=== PATIENT | female | born 1950 | race Caucasian/White ===

== ENCOUNTER 2020-01-07 10:11 | Outpatient (REF) | payer OTHER, SELFPAY ==
[2020-01-07 10:33] LABS: COVID-19 Test Negative (Negative)
== END 2020-01-07 10:12 | disposition home or self-care (01) ==
LOC: HO.LAB 10:11
PROVIDERS: PCP Physician Assistant; Visit Provider Internal Medicine
DX: Z20.828 Contact with and (suspected) exposure to other viral communicable diseases (principal)
CPT/HCPCS: 87635; C9803

== ENCOUNTER 2020-01-08 08:22 | Outpatient (REF) | payer OTHER, SELFPAY ==
[2020-01-08 11:40] LABS: Free T4 (Free Thyroxine) 1.37 ng/dL (0.71-1.85); Thyroid Stimulating Hormone 0.38 mIU/mL (0.32-4.0)
== END 2020-01-08 08:23 | disposition home or self-care (01) ==
LOC: HO.LAB 08:22
PROVIDERS: PCP Physician Assistant; Visit Provider Internal Medicine Endocrinology, Diabetes & Metabolism
DX: E03.9 Hypothyroidism, unspecified (principal)
CPT/HCPCS: 84439; 84443

== ENCOUNTER 2020-02-11 14:32 | Outpatient (REF) | payer OTHER, SELFPAY ==
--- NOTE | 2020-02-11 | MM_ITS ---
EXAMINATION: BONE DENSITOMETRY CLINICAL INDICATION: Asymptomatic menopausal state. COMPARISON: Baseline BD dated 05/17/2017. TECHNIQUE: Using a [employer] DXA System (software version: 13.1) manufactured by [employer], dual-energy x-ray absorptiometry was performed of the lumbar spine and left hip. The images are of good technical quality. Summary results are attached. FINDINGS: AP SPINE L1-L4: Current: BMD 0.840 g/cm2, Z-score -1.0, T-score -2.8, osteoporosis, 5.7% decrease from baseline (<5% change is not significant). Baseline: BMD 0.891 g/cm2. LEFT FEMUR, NECK: Current: BMD 0.800 g/cm2, Z-score 0.2, T-score -1.7, osteopenia. Baseline: BMD 0.821 g/cm2. LEFT FEMUR, TOTAL: Current: BMD 0.850 g/cm2, Z-score 0.4, T-score -1.3, osteopenia, 1.7% decrease from baseline (<5% change is not significant). Baseline: BMD 0.865 g/cm2. IDENTIFIED RISK FACTORS: Menopause, history of fracture (adult). HISTORY OF FRACTURE: Other. MEDICATIONS: None listed. MM/XR DEXA axial skeleton IMPRESSION: 1. DIAGNOSIS: Osteoporosis based on the lowest T-score value of -2.8 in the lumbar spine applying World Health Organization criteria. 2. 10-YEAR FRACTURE RISK PREDICTION, FRAX: Major osteoporotic fracture (clinical spine, forearm, hip or shoulder) 10.9%. Hip fracture 2.0%. 3. Treatment Recommendations: NOF guidelines recommend consideration for treatment in postmenopausal women and men age 50 and older presenting with the following: -A hip or vertebral (clinical or morphometric) fracture. -T-score less than or equal to -2.5 at the femoral neck or spine after appropriate evaluation to exclude secondary causes. -Low bone mass at the hip or spine and a 10-year fracture probability by FRAX of greater than or equal to 3% for hip fracture or greater than or equal to 20% for major osteoporotic fracture based on the [place] adapted WHO algorithm. 4. Other Recommendations: All treatment decisions require clinical judgment and consideration of individual patient factors, including patient preferences, comorbidities, previous drug use, risk factors not captured in the FRAX model (e.g. frailty, falls, vitamin D deficiency, increased bone turnover, interval significant decline in bone density) and possible under or overestimation of fracture risk by FRAX. Additional medical evaluation for secondary cause of low bone mineral density may be appropriate. FUTURE SCAN RECOMMENDATION: People with diagnosed cases of osteoporosis or at high risk for fracture should have regular bone mineral density tests. For patients eligible for Medicare, routine testing is allowed once every 2 years. The testing frequency can be increased to one year for patients who have rapidly progressing disease, those who are receiving or discontinuing medical therapy to restore bone mass, or have additional risk factors.
== END 2020-02-11 14:33 | disposition home or self-care (01) ==
LOC: HO.MAMMO 14:32
PROVIDERS: PCP Physician Assistant; Visit Provider Physician Assistant
DX: Z78.0 Asymptomatic menopausal state (principal)
CPT/HCPCS: 77080

== ENCOUNTER 2020-03-08 08:20 | Outpatient (REF) | payer OTHER, SELFPAY ==
[2020-03-08 09:56] LABS: Anion Gap 14 (12-20); Blood Urea Nitrogen 22 mg/dL (9-16); Carbon Dioxide 26 mmol/L (22-29); Chloride 106 mmol/L (96-108); Cholesterol 190 mg/dL; Estimated Glomerular Filt Rate 55; Glucose Random 92 mg/dL (60-115); HDL Cholesterol 80 mg/dL; LDL Cholesterol Calculated 94 mg/dl; Potassium 4.7 mmol/l (3.3-5.1); Sodium 141 mmol/L (135-145); Triglycerides 83 mg/dL
== END 2020-03-08 08:21 | disposition home or self-care (01) ==
LOC: HO.LAB 08:20
PROVIDERS: Visit Provider Family Medicine
DX: I10 Essential (primary) hypertension (principal)
CPT/HCPCS: 36415; 80048; 80061

== ENCOUNTER → 2020-06-01 14:20 | Outpatient (BNVA) | payer OTHER, SELFPAY | PROVIDERS: PCP Family Medicine; Visit Provider Internal Medicine Endocrinology, Diabetes & Metabolism ==

== ENCOUNTER 2020-06-03 08:35 | Outpatient (REF) | payer OTHER, SELFPAY ==
[2020-06-03 10:07] LABS: Free T4 (Free Thyroxine) 1.34 ng/dL (0.71-1.85); Thyroid Stimulating Hormone 0.97 uIU/mL (0.32-4.0); Vitamin D 25-OH Total 18.8 ng/mL (>30)
== END 2020-06-03 08:36 | disposition home or self-care (01) ==
LOC: HO.LAB 08:35
PROVIDERS: PCP Family Medicine; Visit Provider Internal Medicine Endocrinology, Diabetes & Metabolism
DX: E03.9 Hypothyroidism, unspecified (principal); E55.9 Vitamin D deficiency, unspecified
CPT/HCPCS: 36415; 82306; 84439; 84443

== ENCOUNTER 2020-08-27 07:12 | Outpatient (REF) | payer OTHER, SELFPAY ==
--- NOTE | ~2020-08-27 | MM_ITS ---
EXAMINATION: MM SCREENING DIGITAL BREAST TOMOSYNTHESIS, BILATERAL CLINICAL INFORMATION: Screening. Asymptomatic. The lifetime risk of breast cancer based on the Tyrer-Cuzick Model is 4.8%. COMPARISON: Mammography: June 07, 2018 and studies dating back to July 04, 2011 TECHNIQUE: Digital breast tomosynthesis is performed in both the craniocaudal and mediolateral oblique views along with computer-aided detection (CAD). Synthesized 2D images are generated from the tomosynthesis. FINDINGS: There are scattered areas of fibroglandular density (ACR BI-RADS breast composition Category b). There are no significant masses, abnormal calcifications, or other abnormalities. MM/MM tomosynthesis screening BI IMPRESSION: There are no significant changes from prior study. ASSESSMENT: BI-RADS 1: Negative RECOMMENDATION: Routine annual mammography screening. This patient's information was entered into a reminder system with a target due date for their next mammogram.
== END 2020-08-27 07:13 | disposition home or self-care (01) ==
LOC: HO.MAMMO 07:12
PROVIDERS: PCP Family Medicine; Visit Provider Family Medicine
DX: Z12.31 Encounter for screening mammogram for malignant neoplasm of breast (principal)
CPT/HCPCS: 77063; 77067

== ENCOUNTER 2020-08-30 06:13 | Outpatient (REF) | payer OTHER, SELFPAY ==
--- NOTE | ~2020-08-30 | XR_ITS ---
EXAMINATION: XR BILATERAL HIPS WITH AP PELVIS CLINICAL INFORMATION: Bilateral hip pain. COMPARISON: None. TECHNIQUE: AP view of the pelvis and single views of each hip were obtained. FINDINGS: AP pelvis: There is normal symmetry of SI joints and hip joints with no bony erosive changes, fracture or dislocation. There are symmetrical pelvic bones. There is incidental mild constipation. Bilateral hips: There is normal symmetry of both hip joints with maintained hip joint space. No bony erosive changes seen. No loose bodies. No acute fracture or dislocation. The soft tissues are normal. XR/XR hips CLIVE min 3V IMPRESSION: Unremarkable AP pelvis and bilateral hip exam.
== END 2020-08-30 06:14 | disposition home or self-care (01) ==
LOC: HO.XRAY 06:13
PROVIDERS: PCP Family Medicine; Visit Provider Family Medicine
DX: M25.551 Pain in right hip (principal); M25.552 Pain in left hip
CPT/HCPCS: 73522

== ENCOUNTER 2021-03-14 06:02 | Outpatient (REF) | payer OTHER, SELFPAY ==
[2021-03-14 07:32] LABS: Anion Gap 11 (12-20); Blood Urea Nitrogen 15 mg/dL (9-16); Calcium 9.7 mg/dL (8.4-10.2); Carbon Dioxide 28 mmol/L (22-29); Chloride 105 mmol/L (96-108); Cholesterol 206 mg/dL; Estimated Glomerular Filt Rate 46; Glucose Random 104 mg/dL (60-115); HDL Cholesterol 86 mg/dL; LDL Cholesterol Calculated 104 mg/dl; Potassium 4.3 mmol/L (3.3-5.1); Sodium 140 mmol/L (135-145); Triglycerides 84 mg/dL
== END 2021-03-14 06:03 | disposition home or self-care (01) ==
LOC: HO.LAB 06:02
PROVIDERS: Visit Provider Family Medicine
DX: E78.2 Mixed hyperlipidemia (principal); I10 Essential (primary) hypertension; E03.9 Hypothyroidism, unspecified
CPT/HCPCS: 36415; 80048; 80061; 84443

== ENCOUNTER 2021-04-20 17:17 | Emergency (ER) | payer OTHER, SELFPAY ==
--- NOTE | ~2021-04-20 | CT_ITS ---
EXAMINATION: CT ANGIOGRAM ABDOMEN AND PELVIS CLINICAL INFORMATION: Abdominal pain COMPARISON: None TECHNIQUE: Multiple axial images were obtained through the abdomen and pelvis following the administration of 80 mL of Omnipaque 350 intravenous contrast. Images were non-reviewed on a dedicated 3-D workstation. Additional 2-D coronal and sagittal reformatted images and axial 3-D maximum intensity projection MIP images are generated on the CT workstation. This CT examination was performed using dose optimization techniques as appropriate, variously including the following: *Automated exposure control *Adjustment of mA and/or kV according to patient size (this includes techniques or standardized protocols for targeted exams where dose is matched to indication/reason for exam; i.e. extremities or head) *Use of iterative reconstruction technique DLP: 379 mGy-cm VASCULAR FINDINGS: The distal descending thoracic aorta appears unremarkable. No pulmonary emboli are seen at the lung bases. The abdominal aorta shows minimal atherosclerotic plaque with no aneurysm dissection or stenosis. The aortic bifurcation is patent. Mild calcific plaque present in the proximal common iliac arteries with no stenosis. Both iliac bifurcations are patent. The internal iliac arteries and external iliac arteries are widely patent. Both common femoral arteries appear normal with normal bifurcations and normal-appearing proximal profunda femoris and superficial femoral arteries. The celiac SMA and LORRI are all widely patent. There are single renal arteries present bilaterally that demonstrate mild ostial disease, left greater than right. NONVASCULAR FINDINGS: LUNG BASES: The visualized lung bases are unremarkable. LIVER, GALLBLADDER, AND BILIARY TREE: The liver is normal in size, shape, and attenuation. No focal hepatic lesion or biliary ductal dilatation is present. The gallbladder is unremarkable with no evidence of radiopaque gallstones, gallbladder wall thickening, or obvious pericholecystic inflammatory changes. PANCREAS: Unremarkable. SPLEEN: Unremarkable. ADRENAL GLANDS: Unremarkable. KIDNEYS AND URETERS: The kidneys are normal in size, shape, and attenuation but demonstrates some mild cortical thinning. No hydronephrosis, hydroureter, or calculi seen. No perinephric stranding. BLADDER: Unremarkable. GASTROINTESTINAL TRACT: The small and large bowel are unremarkable. The appendix isn't seen but there is no evidence of appendicitis.. ABDOMINAL WALL: No significant hernia is appreciated. LYMPH NODES: No retroperitoneal lymphadenopathy. PELVIC VISCERA: Unremarkable. OSSEOUS STRUCTURES: Unremarkable. Minimal grade 1 anterolisthesis of L5 upon S1. CT/CT angio abdomen pelvis IMPRESSION: 1. No vascular abnormality is seen. 2. Mild renal cortical thinning. 3. No significant abnormality seen to account for the patient's abdominal pain Fleischner guidelines were followed.
[2021-04-20 17:37] VITALS: BP 173/59; PULSE 66; RESP 18; TEMP 36.5; O2SAT 97; BMI 23.6
[2021-04-20 17:51] LABS: MANUAL DIFF FLAG NO
[2021-04-20 18:06] LABS: Alanine Aminotransferase 12 U/L (0-31); Albumin Level 4.2 g/dL (3.5-5.0); Alkaline Phosphatase 57 U/L (39-117); Anion Gap 15 (12-20); Aspartate Amino Transferase 20 U/L (5-31); Bilirubin Total 0.5 mg/dL (0.0-1.0); Blood Urea Nitrogen 14 mg/dL (9-16); Calcium 9.8 mg/dL (8.4-10.2); Carbon Dioxide 25 mmol/L (22-29); Chloride 104 mmol/L (96-108); Estimated Glomerular Filt Rate 44; Glucose Random 109 mg/dL (60-115); Potassium 4.2 mmol/L (3.3-5.1); Sodium 140 mmol/L (135-145); Total Protein 6.7 g/dL (6.5-8.0)
[2021-04-20 18:07] LABS: Basophils Absolute Auto 0.1 X10*3/uL (0.0-0.2); Eosinophils Percent Auto 0.4 % (0-4); Hematocrit 38.4 % (37.0-47.0); Hemoglobin 12.7 g/dl (12.0-16.0); Imm Gran Abs Auto 0.01 X10*3/uL (0.00-0.03); Imm Gran Pct Auto 0.2 % (0.0-0.4); Lymphocytes Absolute Auto 1.5 X10*3/uL (1.2-4.9); Lymphocytes Percent Auto 30.4 % (20-40); Mean Corpuscular HGB Conc 33.1 g/dl (31.0-35.0); Mean Corpuscular Hemoglobin 31.1 pg (27.0-33.0); Mean Corpuscular Volume 93.9 fL (80.0-98.0); Mean Platelet Volume 9.8 fL (9.4-12.3); Monocytes Absolute Auto 0.5 X10*3/uL (0.1-1.2); Monocytes Percent Auto 10.4 % (2-11); Neutrophils Absolute Auto 2.8 x10*3/uL (2.0-8.3); Neutrophils Percent Auto 57.6 % (45-73); Platelet Count 215 X10*3/uL (160-400); Red Blood Count 4.09 X10*6/uL (4.20-5.50); Red Cell Distribution Width 13.8 % (11.0-16.0); White Blood Count 4.9 X10*3/uL (4.8-10.8)
--- NOTE | 2021-04-20 19:44 | ED.ABDPAIN ---
HPI - Abdominal Pain General Chief Complaint: Abdominal Pain Stated Complaint: abd pain Time Seen by Provider: 04/20/21 19:43 Source: patient Mode of arrival: ambulatory Limitations: no limitations History of Present Illness MD elicited complaint: abdominal pain Pertinent past history: none Onset (ago): day(s) (1) Pain Consistency: constant Location: periumbilical Severity: moderate Quality: cramping Radiation: back Migration to: no migration Exacerbating factors: nothing Relieving factors: nothing Associated symptoms: other (multiple bowel movements, urinary frequency) Related Data Home Medications Medication Instructions Recorded Confirmed lisinopril 10 mg tablet 10 mg PO DAILY 06/01/20 06/01/20 simvastatin 20 mg tablet 20 mg PO BEDTIME 06/01/20 06/01/20 Previous Rx's Medication Instructions Recorded Levoxyl 75 mcg tablet 75 mcg PO DAILY 90 Days #80 tab NS 06/01/20 (levothyroxine) calcium carbonate 600 mg calcium 600 mg PO BID 90 Days #180 tab 06/01/20 (1,500 mg) tablet (Calcium) cefuroxime axetil 500 mg tablet 500 mg PO BID 7 Days #14 tab 04/20/21 Allergies Allergy/AdvReac Type Severity Reaction Status Date / Time No Known Allergies Allergy Verified 04/20/21 17:37 [No Known Allergies*] Review of Systems Review of Systems Constitutional : No Weight loss, No Fever, No Chills ENT/Mouth : No sore throat, No Rhinorrhea Eyes: No Swelling, No Redness Cardiovascular : No Chest Pain, No SOB, NoEdema Respiratory : No Cough, No Sputum, No Wheezing Gastrointestinal : no Nausea, no Vomiting, no Diarrhea, positive abdominal Pain, No Hematochezia, No Melena Genitourinary : No Dysuria, pos Urinary Frequency, No Hematuria, No Urgency Musculoskeletal : No joint pain, No Myalgias, No Joint Swelling Skin : No Skin Lesions, No rash Neuro : No Weakness, No Numbness, No Dizziness, No Headache Psych : No Anxiety/Panic, No Depression Heme/Lymph: No Bruising, No Lymphadenopathy Endocrine : No Polyuria, No Polydipsia All other systems reviewed and are negative. [facility] Past Medical History Medical History Hypothyroidism Vitamin D deficiency Surgical History Hx of tonsillectomy Family History Family History (Updated 01/07/20 @ 16:26 by IQRA Blackwood) Father Lung cancer Mother Cancer Social History Social History (Updated 04/20/21 @ 20:08 by Digna Harrell DO) Alcohol intake: never Patient Tobacco Use Status: Never used Tobacco Advance Directives: No Advance Directives Information Provided: Yes Physical Exam ED Vital Signs: Vital Signs - 24 hr 04/20/21 17:37 Temperature 97.7 F Pulse Rate 66 Respiratory Rate 18 Blood Pressure 173/59 H Pulse Oximetry 97 BMI result Body Mass Index 23.6 Appearance: Alert. Oriented X3. No acute distress. On arrival bending forward to remove her shoes Eyes: Pupils equal, round and reactive to light. ENT: Pharynx normal. Neck: Normal inspection. Neck supple. CVS: Normal heart rate and rhythm. Pulses normal. Respiratory: No respiratory distress. Breath sounds normal. Abdomen: Soft and non-tender. No mass felt, no peritoneal signs Skin: Skin warm and dry. Normal skin color. Normal skin turgor. Extremities: No lower extremity edema. No calf ttp Neuro: Oriented X 3. No motor deficit. No sensory deficit. Course Course Course Narrative: negative workup stable for DC low abdominal pain no cp/sob not consistent with ACS doubt ischemia MDM - Abdominal Pain MDM Narrative Medical decision making narrative: 70 yo female hx of HTN here with one day of lower abdominal pain that radiates to the back no known prior aortic aneurysm at this time she has no peritoneal signs she is not on blood thinners she does note increased in stool frequency and urinary frequency will obtain basic labs, CT scan of abdomen given lack of peritoneal findings and the fact that she is bending forward seems unlikely to be ruptured althoug could be retroperitoneal, UA ordered for UTI. Could be UTI / renal colic/diverticulitis as well. Dispo per results and findings. On arrival to my exam requested she be brought to CT scanner immediately. Lab Data Result diagrams: 04/20/21 17:47 04/20/21 17:47 Labs: Lab Results 04/20/21 04/20/21 04/20/21 Range/Units 17:47 17:47 20:58 WBC 4.9 (4.8-10.8) X10*3/uL RBC 4.09 L (4.20-5.50) X10*6/uL Hgb 12.7 (12.0-16.0) g/dl Hct 38.4 (37.0-47.0) % MCV 93.9 (80.0-98.0) fL MCH 31.1 (27.0-33.0) pg MCHC 33.1 (31.0-35.0) g/dl RDW 13.8 (11.0-16.0) % Plt Count 215 (160-400) X10*3/uL MPV 9.8 (9.4-12.3) fL Immature Gran % (Auto) 0.2 (0.0-0.4) % Neut % (Auto) 57.6 (45-73) % Lymph % (Auto) 30.4 (20-40) % [place] % (Auto) 10.4 (2-11) % Eos % (Auto) 0.4 (0-4) % Baso % (Auto) 1.0 (0-2) % Lymph # (Auto) 1.5 (1.2-4.9) X10*3/uL [place] # (Auto) 0.5 (0.1-1.2) X10*3/uL Eos # (Auto) 0.0 (0.0-0.4) X10*3/uL Baso # (Auto) 0.1 (0.0-0.2) X10*3/uL Abs Immat Gran (auto) 0.01 (0.00-0.03) X10*3/uL Absolute Neuts (auto) 2.8 (2.0-8.3) x10*3/uL Absolute Nucleated RBC 0.000 (0.0-0.012) X10*3/uL Nucleated RBC % (auto) 0.0 (0.0-0.2) /100WBC Sodium 140 (135-145) mmol/L Potassium 4.2 (3.3-5.1) mmol/L Chloride 104 (96-108) mmol/L Carbon Dioxide 25 (22-29) mmol/L Anion Gap 15 (12-20) BUN 14 (9-16) mg/dL Creatinine 1.20 (0.5-1.4) mg/dL Estim Creat Clear Calc 35.0 Estimated GFR 44 Random Glucose 109 (60-115) mg/dL Calcium 9.8 (8.4-10.2) mg/dL Total Bilirubin 0.5 (0.0-1.0) mg/dL AST 20 (5-31) U/L ALT 12 (0-31) U/L Alkaline Phosphatase 57 (39-117) U/L Total Protein 6.7 (6.5-8.0) g/dL Albumin 4.2 (3.5-5.0) g/dL Urine Color YELLOW Urine Appearance CLEAR Urine pH 5.5 (5.0-8.0) Ur Specific [place] <= 1.005 (1.005-1.025) Urine Protein NEG (NEG-TRACE) MG/DL Urine Glucose (UA) NEG (NEG) MG/DL Urine Ketones 5 (NEG) MG/DL Urine Blood NEG (NEG) Urine Nitrite NEG (NEG) Ur Leukocyte Esterase 1+ H (NEG) Urine RBC 0 (0) /HPF Urine WBC 10-14 H (0-4) /HPF Ur Squamous Epith Cells 1+ /LPF Urine Bacteria TRACE /LPF ECG Data Attestation: I personally reviewed and interpreted this ECG as follows: ECG interpretation date: 04/20/21 ECG interpretation time: 21:46 Interpretation: Rate: 62 Rhythm: NSR with PACs [place]: noemL Normal P waves. Normal ARTIS. Normal QRS complex. ST T wave : normal no ARNULFO qTC: normal prior studies: no acute ischemia The study has been interpreted contemporaneously by me. . Discharge Plan Discharge Clinical Impression: Abdominal pain, Acute UTI Patient Disposition: Home, Self-Care Instructions: Urinary Tract Infection in Women (ED), Abdominal Pain (ED) Additional Instructions: return to ED for any worsening symptoms or concerns PLEASE TAKE A PROBIOTIC WHILE ON ANTIBIOTIC VASCULAR FINDINGS: The distal descending thoracic aorta appears unremarkable. No pulmonary emboli are seen at the lung bases. The abdominal aorta shows minimal atherosclerotic plaque with no aneurysm dissection or stenosis. The aortic bifurcation is patent. Mild calcific plaque present in the proximal common iliac arteries with no stenosis. Both iliac bifurcations are patent. The internal iliac arteries and external iliac arteries are widely patent. Both common femoral arteries appear normal with normal bifurcations and normal-appearing proximal profunda femoris and superficial femoral arteries. The celiac SMA and LORRI are all widely patent. There are single renal arteries present bilaterally that demonstrate mild ostial disease, left greater than right. NONVASCULAR FINDINGS: LUNG BASES: The visualized lung bases are unremarkable.? LIVER, GALLBLADDER, AND BILIARY TREE: The liver is normal in size, shape, and attenuation. No focal hepatic lesion or biliary ductal dilatation is present. The gallbladder is unremarkable with no evidence of radiopaque gallstones, gallbladder wall thickening, or obvious pericholecystic inflammatory changes.? PANCREAS: Unremarkable.? SPLEEN: Unremarkable.? ADRENAL GLANDS: Unremarkable.? KIDNEYS AND URETERS: The kidneys are normal in size, shape, and attenuation but demonstrates some mild cortical thinning. No hydronephrosis, hydroureter, or calculi seen. No perinephric stranding. ? BLADDER: Unremarkable.? GASTROINTESTINAL TRACT: The small and large bowel are unremarkable. The appendix isn't seen but there is no evidence of appendicitis..? ABDOMINAL WALL: No significant hernia is appreciated.? LYMPH NODES: No retroperitoneal lymphadenopathy. PELVIC VISCERA: Unremarkable.? OSSEOUS STRUCTURES: Unremarkable. Minimal grade 1 anterolisthesis of L5 upon S1. CT/CT angio abdomen pelvis IMPRESSION: 1.? No vascular abnormality is seen. 2.? Mild renal cortical thinning. 3.? No significant abnormality seen to account for the patient's abdominal pain Prescriptions: New cefuroxime axetil 500 mg tablet 500 mg PO BID 7 Days Qty: 14 0RF No Action simvastatin 20 mg tablet 20 mg PO BEDTIME 0RF lisinopril 10 mg tablet 10 mg PO DAILY 0RF levothyroxine [Levoxyl] 75 mcg tablet 75 mcg PO DAILY 90 Days Qty: 80 4RF Rx Instructions: Dispense as written, brand medically necessary. One tablet Saturday through Saturday calcium carbonate [Calcium 600] 600 mg calcium (1,500 mg) tablet 600 mg PO BID 90 Days Qty: 180 5RF Referrals: Ioana Fischer MD [Primary Care Provider] - 2 days (if not better) Stand Alone Forms: Work/School Release
[2021-04-20] MEDS: iohexoL 350 MG/ML 100 ML INFUS..BTL IV (20:12)
--- NOTE | 2021-04-20 21:03 | PC.NURSE ---
pt up with steady even gait to restroom for urine sample. pt denies any complaints at this time and awaiting for CT report.
[2021-04-20 21:18] LABS: Appearance Urine CLEAR; Color Urine YELLOW; Glucose Urine UA NEG (NEG); Leukocyte Esterase Urine 1+ (NEG); Nitrite Urine NEG (NEG); PH 5.5 (5.0-8.0); Specific Gravity - Urine <= 1.005 (1.005-1.025); UACC Culture Trigger YES; Urine Blood NEG (NEG); Urine Ketones 5 MG/DL (NEG); Urine Protein NEG (NEG-TRACE)
[2021-04-20 21:28] LABS: Bacteria Urine TRACE /LPF; RBC Urine 0 /HPF (0); Squamous Epithelial Cell Urine 1+ /LPF
--- NOTE | 2021-04-20 21:41 | ECG_ITS ---
Test Reason : ABD PAIN Blood Pressure : / mmHG Vent. Rate : 062 BPM Atrial Rate : 062 BPM P-R Int : 164 ms QRS Dur : 080 ms QT Int : 412 ms P-R-T Axes : 020 050 067 degrees QTc Int : 418 ms Sinus rhythm with Premature supraventricular complexes Otherwise normal ECG When compared with ECG of 27-JUL-2016 09:58, Premature supraventricular complexes are now Present Referred By: Digna Harrell Electronically Signed By:VINAY BELLAMY MD
== END 2021-04-20 22:07 | disposition home or self-care (01) ==
PROVIDERS: Emergency Provider Emergency Medicine; PCP Family Medicine
DX: N39.0 Urinary tract infection, site not specified (principal); R35.0 Frequency of micturition; R10.33 Periumbilical pain; R07.89 Other chest pain; Z79.899 Other long term (current) drug therapy
CPT/HCPCS: 36415; 74174; 80053; 81001; 85025; 87086; 93005; 99283; 99284; Q9967

== ENCOUNTER → 2021-06-13 10:57 | Outpatient (BNVA) | payer OTHER, SELFPAY | PROVIDERS: PCP Family Medicine; Visit Provider Internal Medicine Endocrinology, Diabetes & Metabolism | DX: Z13.89 Encounter for screening for other disorder (principal) ==

== ENCOUNTER 2021-06-20 13:56 | Outpatient (REF) | payer OTHER, SELFPAY ==
--- NOTE | ~2021-06-20 | MR_ITS ---
EXAMINATION: MR CERVICAL SPINE WITHOUT CONTRAST CLINICAL INFORMATION: Neck pain. COMPARISON: None available. TECHNIQUE: MRI of the cervical spine was performed using routine sequences without contrast. FINDINGS: The cervical vertebral bodies maintain normal heights. There is mild retrolisthesis of C5 on C6. There is severe disc height loss at C4-C5 and C5-C6. Endplate edema is seen at C4-C5. The cervical cord signal appears normal. The imaged portions of the intracranial contents appear normal. The extraspinal soft tissues appear normal. SPINAL LEVELS: C2-C3: No posterior disc abnormality. No spinal canal or neural foraminal stenosis. C3-C4: Mild disc osteophyte complex. Severe left facet arthropathy. No spinal canal or neural foraminal stenosis. C4-C5: Disc osteophyte complex with uncovertebral hypertrophy and severe left and moderate right facet arthropathy. Mild bilateral neural foraminal stenosis. No spinal canal stenosis. C5-C6: Disc osteophyte complex with left more than right uncovertebral hypertrophy and severe left and moderate right facet arthropathy. No spinal canal stenosis. Mild bilateral neural foraminal stenosis. C6-C7: Disc bulging with severe left and mild to moderate right facet arthropathy. Mild left neural foraminal stenosis. No spinal canal stenosis. C7-T1: No posterior disc abnormality. No spinal canal or neural foraminal stenosis. MR/MR cervical spine wo con IMPRESSION: Multilevel degenerative spondylosis without significant narrowing of the spinal canal. No high-grade neural foraminal stenosis is seen. Multilevel facet arthropathy is present, asymmetrically worse on the left.
== END 2021-06-20 13:57 | disposition home or self-care (01) ==
LOC: HO.MRI 13:56
PROVIDERS: Visit Provider Family Medicine
DX: M54.2 Cervicalgia (principal)
CPT/HCPCS: 72141

== ENCOUNTER 2021-07-11 06:09 | Outpatient (REF) | payer OTHER, SELFPAY ==
[2021-07-11 11:23] LABS: Vitamin D 25-OH Total 29.4 ng/mL (>30)
[2021-07-11 11:24] LABS: Free T4 (Free Thyroxine) 0.87 ng/dL (0.71-1.85); Thyroid Stimulating Hormone 12.08 uIU/mL (0.32-4.0)
== END 2021-07-11 06:10 | disposition home or self-care (01) ==
LOC: HO.LAB 06:09
PROVIDERS: Internal Medicine Endocrinology, Diabetes & Metabolism; PCP Family Medicine; Visit Provider Internal Medicine Endocrinology, Diabetes & Metabolism
DX: E03.9 Hypothyroidism, unspecified (principal); E55.9 Vitamin D deficiency, unspecified
CPT/HCPCS: 36415; 82306; 84439; 84443

== ENCOUNTER → 2021-07-19 08:32 | Outpatient (BNVA) | payer OTHER, SELFPAY | PROVIDERS: PCP Family Medicine; Visit Provider Nurse Practitioner Family | DX: Z13.89 Encounter for screening for other disorder (principal) ==

== ENCOUNTER 2021-08-10 13:57 | Outpatient (REF) | payer OTHER, SELFPAY ==
[2021-08-10 15:01] LABS: Free T4 (Free Thyroxine) 1.23 ng/dL (0.71-1.85); Thyroid Stimulating Hormone 1.55 uIU/mL (0.32-4.0)
== END 2021-08-10 13:58 | disposition home or self-care (01) ==
LOC: HO.LAB 13:57
PROVIDERS: PCP Family Medicine; Visit Provider Internal Medicine Endocrinology, Diabetes & Metabolism
DX: E03.9 Hypothyroidism, unspecified (principal)
CPT/HCPCS: 36415; 84439; 84443

== ENCOUNTER 2021-11-01 05:57 | Outpatient (REF) | payer OTHER, SELFPAY ==
--- NOTE | ~2021-11-01 | FL_ITS ---
EXAMINATION: XR FLUOROSCOPY WITH IMAGES CLINICAL INFORMATION: Left cervical spine injection. COMPARISON: None. TECHNIQUE: Fluoroscopy performed by Dr. Jarocho Gonzales. Fluoroscopy time: 0.3 minutes. Cumulative Dose: 0.781 mGy. DAP: 0.0656 Gy-cm2. Images: 5. FINDINGS: Multiple radiopaque needles project over the cervical spine. Contrast is injected and spreads along the nerve roots. FL/FL guidance in treatment room IMPRESSION: Fluoroscopic guidance for cervical injection. Please refer to procedural report for further information.
== END 2021-11-01 05:58 | disposition home or self-care (01) ==
LOC: HO.RADIR 05:57
PROVIDERS: Visit Provider Internal Medicine
DX: M47.812 Spondylosis without myelopathy or radiculopathy, cervical region (principal)
CPT/HCPCS: 64490; 64491; J2795; Q9965

== ENCOUNTER 2021-11-29 06:07 | Outpatient (REF) | payer OTHER, SELFPAY ==
--- NOTE | ~2021-11-29 | FL_ITS ---
EXAMINATION: XR FLUOROSCOPY WITH IMAGES CLINICAL INFORMATION: Pain COMPARISON: None. TECHNIQUE: Fluoroscopy performed by Dr. Jarocho Gonzales. Fluoroscopy time: 0.2 minutes. Cumulative Dose: 1.28 mGy. DAP: 0.101 Gy-cm2. Images: 2. FINDINGS: On 2 digital images obtained there are needles positioned lateral to left C3, C4 and C5 vertebra with contrast opacifying the soft tissues for pain management. There is loss of C4-C5 and C5-C6 disc height. The facet joints are symmetrical. FL/FL guidance in treatment room IMPRESSION: Fluoroscopy guidance was provided to referring physician for pain management.
== END 2021-11-29 06:08 | disposition home or self-care (01) ==
LOC: CF 06:07
PROVIDERS: Visit Provider Internal Medicine
DX: M47.812 Spondylosis without myelopathy or radiculopathy, cervical region (principal)
CPT/HCPCS: 64490; 64491

== ENCOUNTER 2021-12-15 07:59 | Outpatient (REF) | payer OTHER, SELFPAY ==
[2021-12-15 09:21] LABS: Anion Gap 16 (12-20); Blood Urea Nitrogen 22 mg/dL (9-16); Calcium 9.4 mg/dL (8.4-10.2); Carbon Dioxide 25 mmol/L (22-29); Chloride 106 mmol/L (96-108); Cholesterol 185 mg/dL; Estimated Glomerular Filt Rate 50; Glucose Random 99 mg/dL (60-115); HDL Cholesterol 82 mg/dL; LDL Cholesterol Calculated 92 mg/dl; Potassium 5.2 mmol/L (3.3-5.1); Sodium 142 mmol/L (135-145); Triglycerides 57 mg/dL
[2021-12-15 09:42] LABS: Thyroid Stimulating Hormone 0.91 uIU/mL (0.32-4.0)
[2021-12-15 10:14] LABS: Creatinine Urine 98.31 mg/dL; Microalbum/Creatinine Ratio Ur 14.2 ug/mg cr
== END 2021-12-15 08:00 | disposition home or self-care (01) ==
LOC: HO.LAB 07:59
PROVIDERS: PCP Family Medicine; Visit Provider Family Medicine
DX: E78.2 Mixed hyperlipidemia (principal); E03.9 Hypothyroidism, unspecified; I10 Essential (primary) hypertension
CPT/HCPCS: 36415; 80048; 80061; 82043; 84443

== ENCOUNTER 2022-01-04 14:34 | Outpatient (REF) | payer OTHER, SELFPAY ==
--- NOTE | ~2022-01-04 | MM_ITS ---
EXAMINATION: MM SCREENING DIGITAL BREAST TOMOSYNTHESIS, BILATERAL CLINICAL INFORMATION: Screening. Asymptomatic. COMPARISON: Mammography: 08/27/2020, 06/07/2018, 05/17/2017, 01/14/2016, 11/20/2014, 07/04/2011 TECHNIQUE: Digital breast tomosynthesis is performed in both the craniocaudal and mediolateral oblique views along with computer-aided detection (CAD). Synthesized 2D images are generated from the tomosynthesis. FINDINGS: There are scattered areas of fibroglandular density (ACR BI-RADS breast composition Category b). There are no significant masses, abnormal calcifications, or other abnormalities. There are scattered shifting fibroglandular parenchymal densities related to variation in positioning. No developing density or architectural abnormality. The axilla and skin contours are unremarkable. No significant changes from prior studies. MM/MM tomosynthesis screening BI IMPRESSION: No mammographic evidence of malignancy. ASSESSMENT: BI-RADS 1: Negative RECOMMENDATION: Routine annual mammography screening. This patient's information was entered into a reminder system with a target due date for their next mammogram.
== END 2022-01-04 14:35 | disposition home or self-care (01) ==
LOC: HO.MAMMO 14:34
PROVIDERS: PCP Family Medicine; Visit Provider Family Medicine
DX: Z12.31 Encounter for screening mammogram for malignant neoplasm of breast (principal)
CPT/HCPCS: 77063; 77067

== ENCOUNTER 2022-02-14 14:30 | Outpatient (REF) | payer OTHER, SELFPAY ==
--- NOTE | ~2022-02-14 | MM_ITS ---
EXAMINATION: BONE DENSITOMETRY CLINICAL INDICATION: Osteopenia. COMPARISON: Previous BD dated 02/11/2020 and baseline BD dated 05/17/2017. TECHNIQUE: Using a [employer] DXA System (software version: 13.1) manufactured by [employer], dual-energy x-ray absorptiometry was performed of the lumbar spine and left hip. The images are of good technical quality. Summary results are attached. FINDINGS: AP SPINE L1-L4: Current: BMD 0.841 g/cm2, Z-score -1.0, T-score -2.8, osteoporosis, 0.1% increase from previous, 5.6% decrease from baseline (<5% change is not significant). Prior: BMD 0.840 g/cm2. Baseline: BMD 0.891 g/cm2. LEFT FEMUR, NECK: Current: BMD 0.799 g/cm2, Z-score 0.2, T-score -1.7, osteopenia. Prior: BMD 0.800 g/cm2. Baseline: BMD 0.821 g/cm2. LEFT FEMUR, TOTAL: Current: BMD 0.814 g/cm2, Z-score 0.2, T-score -1.5, osteopenia, 4.2% decrease from previous, 5.9% decrease from baseline (<5% change is not significant). Prior: BMD 0.850 g/cm2. Baseline: BMD 0.865 g/cm2. IDENTIFIED RISK FACTORS: Osteoporosis, history of fracture (adult), menopause. HISTORY OF FRACTURE: Ankle. MEDICATIONS: Calcium supplements or multivitamin, vitamin D. MM/XR DEXA axial skeleton IMPRESSION: 1. DIAGNOSIS: Osteoporosis based on the lowest T-score value of -2.8 in the lumbar spine applying World Health Organization criteria. 2. 10-YEAR FRACTURE RISK PREDICTION, FRAX: According to the guidelines, FRAX calculation should only be performed on patients in the osteopenia bone density category. Therefore, FRAX was not performed on this patient. 3. Treatment Recommendations: NOF guidelines recommend consideration for treatment in postmenopausal women and men age 50 and older presenting with the following: -A hip or vertebral (clinical or morphometric) fracture. -T-score less than or equal to -2.5 at the femoral neck or spine after appropriate evaluation to exclude secondary causes. -Low bone mass at the hip or spine and a 10-year fracture probability by FRAX of greater than or equal to 3% for hip fracture or greater than or equal to 20% for major osteoporotic fracture based on the [place] adapted WHO algorithm. 4. Other Recommendations: All treatment decisions require clinical judgment and consideration of individual patient factors, including patient preferences, comorbidities, previous drug use, risk factors not captured in the FRAX model (e.g. frailty, falls, vitamin D deficiency, increased bone turnover, interval significant decline in bone density) and possible under or overestimation of fracture risk by FRAX. Additional medical evaluation for secondary cause of low bone mineral density may be appropriate. FUTURE SCAN RECOMMENDATION: People with diagnosed cases of osteoporosis or at high risk for fracture should have regular bone mineral density tests. For patients eligible for Medicare, routine testing is allowed once every 2 years. The testing frequency can be increased to one year for patients who have rapidly progressing disease, those who are receiving or discontinuing medical therapy to restore bone mass, or have additional risk factors.
== END 2022-02-14 14:31 | disposition home or self-care (01) ==
LOC: HO.MAMMO 14:30
PROVIDERS: Visit Provider Family Medicine
DX: Z13.820 Encounter for screening for osteoporosis (principal); M85.80 Other specified disorders of bone density and structure, unspecified site; Z78.0 Asymptomatic menopausal state
CPT/HCPCS: 77080

== ENCOUNTER 2022-03-07 | Outpatient (REF) | payer OTHER, SELFPAY ==
--- NOTE | ~2022-03-07 | XR_ITS ---
EXAMINATION: XR HAND, LEFT CLINICAL INFORMATION: Left hand pain. COMPARISON: None TECHNIQUE: PA, lateral, and oblique views of the left hand. FINDINGS: There is mild osteopenia with loss of PIP and DIP joint spaces. There is mild periarticular spurring PIP joint second digit. The first carpometacarpal joint space is preserved without bony erosive changes. There is mild soft tissue swelling first carpometacarpal and second and third DIP joints XR/XR hand LT min 3V IMPRESSION: Degenerative osteoarthritic changes PIP, DIP joints with periarticular spurring PIP joint second digit. Mild osteopenia.
[2022-03-07 11:08] LABS: Rheumatoid Factor < 13.0 IU/mL (<15.0)
[2022-03-07 11:36] LABS: Erythrocyte Sedimentation Rate 7 MM/HR (0-20)
[2022-03-09 15:43] LABS: Anti Nuclear Antibody Screen NEGATIVE (NEGATIVE)
== END 2022-03-07 00:01 ==
LOC: HO.XRAY
PROVIDERS: PCP Family Medicine; Visit Provider Physician Assistant Surgical
DX: M79.642 Pain in left hand (principal)
CPT/HCPCS: 36415; 73130; 85652; 86038; 86039; 86140; 86431

== ENCOUNTER → 2022-07-18 14:01 | Day surgery (SDC) | payer OTHER, SELFPAY ==
[2022-07-18 14:06] VITALS: BMI 24.8
--- NOTE | 2022-07-18 21:08 | PC.NURSE ---
1615 LUNCH TRUCK OPERATORLedy at bedside reviewing with patient that Dr. Gonzales surgery delay has caused need to re-schedule patient procedure. Patient dressing at bedside and discharge to home following.
== END ==
PROVIDERS: PCP Family Medicine; Visit Provider Internal Medicine
DX: M47.812 Spondylosis without myelopathy or radiculopathy, cervical region (principal); Z53.29 Procedure and treatment not carried out because of patient's decision for other reasons

== ENCOUNTER 2022-09-05 12:33 | Day surgery (SDC) | payer OTHER, SELFPAY ==
--- NOTE | ~2022-09-05 | FL_ITS ---
EXAMINATION: XR FLUOROSCOPY WITH IMAGES CLINICAL INFORMATION: Pain COMPARISON: None available. TECHNIQUE: Fluoroscopy Supervised By: Dr. Goldstein Fluoroscopy Time: 0.4 minutes. Cumulative Dose: 1.92 mGy. DAP: 0.274 Gycm2. Images: 2. FINDINGS: Localization at the C4-C5 posterior elements noted on the lateral projection. FL/FL guidance in OR IMPRESSION: Fluoroscopy for surgical level assessment during procedure.
[2022-09-05 13:34] VITALS: BMI 24.8
[2022-09-05 13:39] VITALS: BP 166/70; PULSE 54; RESP 16; TEMP 36.6; O2SAT 99
[2022-09-05 16:52] VITALS: BP 163/62; PULSE 66; RESP 14; TEMP 36.6; O2SAT 96
--- NOTE | 2022-09-05 16:55 | MHC.SHP ---
Pre-Procedural Eval Section A Date of Service: 09/05/22 The patient is an INPATIENT: No Changes since office visit: Yes Patient answered all questions The History & Physical has been completed within 30 days and I have reviewed it.: No Section B Chief Complaint: Spondylosis without myelopathy or radiculopathy Relevant Family History (Specify if Yes): No Relevant Social History: None Present Medications: see Short Stay Collaborative assessment Medical History: No relevant PMH History of Previous Operations: No relevant previous surgery Allergies: Allergies Allergy/AdvReac Type Severity Reaction Status Date / Time No Known Allergies Allergy Verified 09/05/22 13:36 [No Known Allergies*] Review of Systems Sugical H&P ROS: Negative: Constitution, Cardiovascular and Respiratory Exam Surgical H&P Exam: Normal: HEENT, Normal: Heart and Normal: Lungs Plan Diagnosis/Plan: Unchanged I have reviewed the history and physical and performed a pertinent physical examination on my patient. No changes have occurred unless specified. Proceed with C4 Medial Branch PNS trial. Time Spent With Patient Time: Total time managing care of this patient today ____ minutes.
--- NOTE | 2022-09-05 16:56 | PM.OP ---
Brief Operative Note Date of Service: 09/05/22 Pre-op diagnosis: Cervical spondylosis, chronic intractable neck pain Post-op diagnosis: same Procedure: Temporary left C4 medial branch nerve stimulator placement Implants: Sprint temporary PNS system Surgeon: Jarocho Gonzales MD Anesthesia: local Was an Trucking Manager used for this Procedure?: No Estimated blood loss (mL): 4 Pathology: none sent Condition: stable Disposition: same day
--- NOTE | 2022-09-05 16:58 | W.PM.OPN ---
Operative Note Operative Note Date of Service: 09/05/22 Narrative: Cervical Medial Branch Nerve Stimulation Lead Placement, SPR (Sprint) System, Left C4 ? After the risks, benefits and alternatives were discussed with the patient and informed consent was obtained, patient was placed in the prone position and padded to foster comfort. The skin overlying the cervical spine was prepped and draped in sterile fashion. Fluoroscopy was used to identify the spinous process and lamina over the C4 articular pillar. After identifying and marking the intended target along the course of the medial branch nerve, the skin around the planned entry point and the subcutaneous tissues were injected with lidocaine 1%. An introducer needle and stimulating probe were assembled, inserted and advanced along the intended course of the medial branch nerve , taking care to maintain the proper depth of insertion as the introducer is advanced under fluoroscopic guidance. The introducer needle was delivered to a location in proximity to the nerve. Multiple stimulation parameters were used to deliver stimulation to the target medial branch nerve in concert with stimulating at multiple positions around the nerve. Nerve target acquisition was confirmed noting generation of paresthesias in the paravertebral regions corresponding to the level being stimulated. Various electrical parameter combinations were tested, and the lead location was adjusted (physically relocated) until the patient indicated paresthesia/muscle tension overlapping the distribution of the patient?s typical region of pain, including neck and occipital region. The stimulating probe was removed from the introducer and a percutaneous lead was guided through the needle and delivered to a location in similar proximity to the nerve. Final location was verified with electrical stimulation and documented with fluoroscopy. The introducer needle was removed. Upon removal, a quick gush of blood was noted during needle retraction indicating a transvascular placement. The lead was removed and steady pressure was held for 5-7 minutes until achievement of hemostasis. An introducer needle and stimulating probe were reassembled, reinserted and readvanced along the intended course of the medial branch nerve, taking care to maintain the proper depth of insertion as the introducer is advanced under fluoroscopic guidance. A relatively more lateral approach was taken during the second attempt. The introducer needle was delivered to a location in proximity to the nerve. Multiple stimulation parameters were used to deliver stimulation to the target medial branch nerve in concert with stimulating at multiple positions around the nerve. Nerve target acquisition was confirmed noting generation of paresthesias in the paravertebral regions corresponding to the level being stimulated. Various electrical parameter combinations were tested, and the lead location was adjusted (physically relocated) until the patient indicated paresthesia/muscle tension overlapping the distribution of the patient?s typical region of pain, including neck and occipital region. The stimulating probe was removed from the introducer and a percutaneous lead was guided through the needle and delivered to a location in similar proximity to the nerve. Final location was verified with electrical stimulation and documented with fluoroscopy. The introducer needle was removed, and the exposed end of the percutaneous lead was attached to an external stimulator unit. No overt bleeding was noted during needle removal upon second attempt. Various electrical parameter combinations were again tested until the patient indicated paresthesia or muscle tension overlapping the distribution of the patient?s typical region of pain. After confirming that lead impedance was in the normal range, the external unit was detached, the needle was removed, and the lead was anchored at the skin. The lead was threaded into the connector block and electrical continuity and desired patient response was confirmed. The connector block was attached to the external stimulator unit. The site was covered with a sterile occlusive pressure dressing. The patient was observed for stability of vital signs and comfort. Neuro exam in PACU was reassuring. Patient denied any speech of sensory deficit. She was dischared in stable condition.
== END 2022-09-05 17:14 | disposition home or self-care (01) ==
PROVIDERS: PCP Family Medicine; Visit Provider Internal Medicine
PROC: (CPT 64555; principal; 2022-09-05 13:40)
DX: M47.812 Spondylosis without myelopathy or radiculopathy, cervical region (principal); M54.2 Cervicalgia; G89.29 Other chronic pain; E03.9 Hypothyroidism, unspecified; E55.9 Vitamin D deficiency, unspecified
CPT/HCPCS: 64555; C1778

== ENCOUNTER → 2022-09-10 07:52 | Outpatient (BNVA) | payer OTHER, SELFPAY | PROVIDERS: PCP Family Medicine; Visit Provider Internal Medicine ==

== ENCOUNTER 2022-11-02 07:53 | Outpatient (AMB) | payer OTHER, SELFPAY ==
--- NOTE | 2022-11-02 07:55 | MHC.OFFVIS ---
Intake Vital Signs 11/02/22 07:56 Height 5 ft 3 in Weight 143 lb BMI 25.3 BP 120/86 Blood Pressure Location Rt brachial Position Sitting Respiration 14 Pulse 53 Pulse Source Pulse Oximeter Pulse Oximetry (%) 97 Oxygen Delivery Method Room Air Intake Visit Reasons: Sprint removal Allergies No Known Allergies [No Known Allergies*] Allergy (Verified 11/02/22 07:59) Medication List - Last Reconciled 11/02/22 by Lashawn Borrego LPN baclofen 5 mg PO BEDTIME PRN calcium carbonate (Calcium) 600 mg PO BID 90 days levothyroxine 75 mcg PO DAILY lisinopril 10 mg PO DAILY simvastatin 20 mg PO BEDTIME HPI Sprint removal HPI Details 72-year-old female is presenting today for a Sprint removal. After our last meeting, the patient switched off the device for two days, and in the meantime, she was taking baclofen and this relieved her trapezius spasm. She then resumed her Sprint stimulation therapy. Overall, she reports excellent relief for her neck pain. Past Procedures: 09/05/22: Cervical Medial Branch Nerve Stimulation Lead Placement, SPR (Sprint) System, Left C4: 80% relief. 11/29/21: Repeat Left Diagnostic C4-C5-C6 MBBs ? 90% relief. 11/01/21: Left Diagnostic C4-C5-C6 MBBs ? 60% on the day of injection, 30% sustained 3 days out. [facility] Medical History (Updated 09/05/22 @ 13:36 by Tsering Thomason) Hypertension Hypothyroidism Vitamin D deficiency Surgical History Hx of tonsillectomy Family History (Updated 01/07/20 @ 16:26 by Martine Eng [facility]) Father Lung cancer Mother Cancer Social History (Updated 06/13/21 @ 11:09 by BEAU Lui) Alcohol intake: current Alcohol intake frequency: holidays/special occasions only Patient Tobacco Use Status: Never used Tobacco Review of Systems Const All systems reviewed & are unremarkable except as noted in HPI and below Physical Exam Vital Signs: Last Vital Signs Pulse 53 11/02/22 07:56 Resp 14 11/02/22 07:56 BP 120/86 11/02/22 07:56 Pulse Ox 97 11/02/22 07:56 Oxygen Delivery Method Room Air 11/02/22 07:56 BMI result Body Mass Index 25.3 General: Appears afebrile. Alert and oriented. Mood and affect appropriate. Follows and participates in conversation appropriately. Respiratory effort is unlabored. Able to transition from sit to stand unassisted. Ambulates with bilaterally normal heel strike and toe off. Lead removed with tip intact. Results Reviewed Results Reviewed: No imaging is available for review. Assessment & Plan Assessment & Plan (1) Facet arthropathy, cervical: Code(s): M47.812 - Spondylosis without myelopathy or radiculopathy, cervical region (2) Muscle spasms of neck: Code(s): M62.838 - Other muscle spasm Plan A refill of baclofen 5mg was provided to the patient. The patient will follow up as needed. Scribed for Dr. Gonzales by Cody Raya, medical coding auditor, on 11/02/2022. I, Dr. Gonzales, have personally reviewed and agree with the information entered by the scribe. Medications: New baclofen 5 mg PO BEDTIME 60 tabs 6RF Coding Level of Care Code Est Pt Level 3 (82774) Diagnoses Facet arthropathy, cervical M47.812 Muscle spasms of neck M62.838
[2022-11-02 07:56] VITALS: BP 120/86; PULSE 53; RESP 14; O2SAT 97; BMI 25.3
== END 2022-11-02 08:29 | disposition home or self-care (01) ==
PROVIDERS: PCP Family Medicine; Visit Provider Internal Medicine
DX: M47.812 Spondylosis without myelopathy or radiculopathy, cervical region (principal); M62.838 Other muscle spasm
CPT/HCPCS: 99213

== ENCOUNTER → 2022-11-02 07:53 | Outpatient (BNVA) | payer OTHER, SELFPAY | PROVIDERS: PCP Family Medicine; Visit Provider Internal Medicine ==

== ENCOUNTER 2022-12-10 06:04 | Outpatient (REF) | payer OTHER, SELFPAY | END 2022-12-10 06:05 | disposition home or self-care (01) | LOC: HO.LAB 06:04 | PROVIDERS: PCP Family Medicine; Visit Provider Family Medicine | DX: S83.206A Unspecified tear of unspecified meniscus, current injury, right knee, initial encounter (principal); E03.9 Hypothyroidism, unspecified; I10 Essential (primary) hypertension; E78.2 Mixed hyperlipidemia; X58.XXXA Exposure to other specified factors, initial encounter; Y93.9 Activity, unspecified; Y92.9 Unspecified place or not applicable; Y99.9 Unspecified external cause status | CPT/HCPCS: 36415; 73564; 80053; 80061; 84443 ==

== ENCOUNTER 2023-01-12 08:07 | Outpatient (REF) | payer OTHER, SELFPAY | END 2023-01-12 08:08 | disposition home or self-care (01) | LOC: HO.MAMMO 08:07 | PROVIDERS: PCP Family Medicine; Visit Provider Family Medicine | DX: Z12.31 Encounter for screening mammogram for malignant neoplasm of breast (principal) | CPT/HCPCS: 77063; 77067 ==

== ENCOUNTER → 2023-01-12 08:30 | Outpatient (BNV) | payer OTHER, SELFPAY | PROVIDERS: PCP Family Medicine; Visit Provider Radiology Diagnostic Radiology | DX: Z12.31 Encounter for screening mammogram for malignant neoplasm of breast (principal) | CPT/HCPCS: 77063; 77067 ==

== ENCOUNTER 2023-11-25 08:24 | Outpatient (REF) | payer OTHER, SELFPAY ==
[2023-11-25 10:20] LABS: Anion Gap 11 (12-20); Blood Urea Nitrogen 18 mg/dL (9-16); Calcium 9.5 mg/dL (8.4-10.2); Carbon Dioxide 27 mmol/L (22-29); Chloride 108 mmol/L (96-108); Cholesterol 181 mg/dL (<200); Estimated Glomerular Filt Rate 48; Glucose Random 100 mg/dL (60-115); HDL Cholesterol 86 mg/dL (>40); LDL Cholesterol Calculated 79 mg/dL (<100); Potassium 4.3 mmol/L (3.3-5.1); Sodium 142 mmol/L (135-145); Triglycerides 82 mg/dL (<150)
[2023-11-25 10:23] LABS: TSH reflex Free T4 2.62 uIU/mL (0.32-4.0)
== END 2023-11-25 08:25 | disposition home or self-care (01) ==
LOC: HO.LAB 08:24
PROVIDERS: PCP Family Medicine; Visit Provider Family Medicine
DX: I10 Essential (primary) hypertension (principal); E03.9 Hypothyroidism, unspecified; E78.2 Mixed hyperlipidemia
CPT/HCPCS: 36415; 80048; 80061; 84443

== ENCOUNTER 2024-02-06 09:24 | Outpatient (REF) | payer OTHER, SELFPAY ==
--- NOTE | ~2024-02-06 | XR_ITS ---
EXAMINATION: XR KNEE, RIGHT CLINICAL INFORMATION: Right knee pain. COMPARISON: Most recent right knee radiographs dated 12/10/2022. TECHNIQUE: Three views of the right knee. FINDINGS: Moderate medial compartment joint space narrowing with tiny marginal osteophytes. Tiny patellofemoral compartment marginal osteophytes. No acute fracture or dislocation. No concerning lytic or blastic osseous lesion. Trace joint effusion. No abnormal soft tissue calcification. XR/XR knee RT 3V IMPRESSION: Moderate medial as well as mild patellofemoral compartment osteoarthritis. Trace joint effusion. Electronically signed by: Maicol Lorenz MD 02/07/2024 04:01 PM [facility]
== END 2024-02-06 09:25 | disposition home or self-care (01) ==
LOC: HO.HOSX 09:24
PROVIDERS: Visit Provider Orthopaedic Surgery
DX: M25.561 Pain in right knee (principal)
CPT/HCPCS: 73562

== ENCOUNTER 2024-02-06 12:48 | Outpatient (AMB) | payer OTHER, SELFPAY ==
--- NOTE | 2024-02-06 12:49 | A.OFFVIS_ITS ---
Vital Signs 02/06/24 13:04 Height 5 ft 3 in Weight 143 lb BMI 25.3 Intake Visit Reasons: Right knee pain and giving way Intake Note: Margaux is a 73-year-old female who presents with complaints of progressively worsening right knee pain and giving way. The patient states that her symptoms have gotten worse over the last 2 years in spite of continued non operative treatments. She was given a cortisone injection by her primary care physician that gave her no relief. She has done physical therapy exercises which aggravated her pain. She has also tried Tylenol and anti-inflammatory medicines which gave her minimal relief. The patient states that at times her right knee will give out. Allergies No Known Allergies [No Known Allergies*] Allergy (Verified 02/06/24 13:05) Medication List - Last Reconciled 02/06/24 by Fili Bella MD baclofen 5 mg PO BEDTIME calcium carbonate (Calcium 600) 600 mg PO BID 90 days levothyroxine 75 mcg PO DAILY lisinopril 10 mg PO DAILY simvastatin 20 mg PO BEDTIME PFSH Medical History (Updated 02/03/24 @ 14:37 by Fili Bella MD) Hypertension Vitamin D deficiency Hypothyroidism Surgical History Hx of tonsillectomy Family History (Updated 01/07/20 @ 16:26 by Martine Eng [facility]) Father Lung cancer Mother Cancer Social History (Updated 06/13/21 @ 11:09 by BEAU Lui) Alcohol intake: current Alcohol intake frequency: holidays/special occasions only Patient Tobacco Use Status: Never used Tobacco Physical Exam Const Other: Well-nourished well-developed very friendly female awake alert and oriented x3 in no acute distress Extrem Other: Bilateral lower extremity examination shows good capillary refill, no skin lesions noted, normal sensation light touch Right knee examination shows a effusion, minimal crepitus with range of motion, tenderness along her medial joint line, positive Donald's test, no instability Results Reviewed Results Reviewed: Standing full weight-bearing x-rays of the patient's right knee shows mild diffuse joint space narrowing, no acute bony abnormalities Assessment & Plan Assessment & Plan (1) Right knee pain: Code(s): M25.561 - Pain in right knee Category: Medical Plan Ms. Florian presents with progressively worsening right knee pain and mechanical symptoms most likely due to a medial meniscus tear. I will send the patient for an MRI of her right knee for further evaluation. I will see her back once the MRI is completed to discuss the findings and treatment options. Feel free to call me at any time should questions regarding her orthopedic manag ement arise. I spent 22 minutes in reviewing the patient's records and imaging studies, seeing the patient and documenting in the medical record. Orders: Orders XR knee RT 3V Today M25.561 - Pain in right knee MR knee RT wo con Today M25.561 - Pain in right knee Coding Level of Care Code New Pt Level 3 (24625) Complex EM visit Add On G2211 Diagnoses Right knee pain M25.561
[2024-02-06 13:04] VITALS: BMI 25.3
== END 2024-02-06 13:12 | disposition home or self-care (01) ==
PROVIDERS: PCP Family Medicine; Visit Provider Orthopaedic Surgery
DX: M25.561 Pain in right knee (principal)
CPT/HCPCS: 99203

== ENCOUNTER 2024-02-07 11:40 | Outpatient (REF) | payer OTHER, SELFPAY ==
--- NOTE | ~2024-02-07 | MR_ITS ---
EXAMINATION: MR KNEE WITHOUT CONTRAST, RIGHT CLINICAL INFORMATION: Right knee pain and swelling. Anterior catching. COMPARISON: Right knee radiographs dated 02/06/2024. TECHNIQUE: MRI of the knee without contrast was performed using routine sequences on a high-field scanner. FINDINGS: MENISCI: Medial Meniscus: Complex tearing of the medial extruded meniscal body with a dominant oblique inner margin component and an inferiorly displaced meniscal flap within the medial meniscotibial recess measuring up to 1.5 cm in AP dimension. Attenuation and complex tearing extends through the inner margin and tibial articular surface of the posterior horn and root with a small meniscal flap adjacent to the posterior root measuring up to 0.6 cm. Lateral Meniscus: Intact LIGAMENTS: Cruciate: Intact Collateral: Edema adjacent to the medial collateral ligament which may be related to the meniscal tear or indicate a grade 1 sprain. Intact fibular collateral ligament. EXTENSOR MECHANISM: Intact ARTICULAR CARTILAGE/BONE: Patellofemoral Compartment: Patellar median ridge and inferior medial patellar facet articular cartilage thinning. Central trochlea signal heterogeneity. Tiny marginal osteophytes. Medial Compartment: Articular cartilage thinning with areas of near full-thickness loss and minimal medial tibial plateau subchondral cystic change. Small marginal osteophytes. Lateral Compartment: Weightbearing articular cartilage thinning with tiny marginal osteophytes. JOINT FLUID AND BURSAE: Trace joint effusion and trace Logan's cyst. MR/MR knee RT wo con IMPRESSION: 1. Complex tearing of the medial extruded meniscal body with a dominant oblique inner margin component and an inferiorly displaced meniscal flap within the medial meniscotibial recess. Complex tearing extends through the inner margin and tibial articular surface of the posterior horn and root with a small meniscal flap adjacent to the posterior root. 2. Edema adjacent to the medial collateral ligament which may be related to the meniscal tear or indicate a grade 1 sprain. 3. Mild tricompartmental osteoarthritis. Trace joint effusion and trace Logan's cyst. Electronically signed by: Maicol Lorenz MD 02/07/2024 04:01 PM [facility]
== END 2024-02-07 11:41 | disposition home or self-care (01) ==
LOC: HO.MRI 11:40
PROVIDERS: PCP Family Medicine; Visit Provider Orthopaedic Surgery
DX: M25.561 Pain in right knee (principal)
CPT/HCPCS: 73721

== ENCOUNTER 2024-02-24 13:01 | Outpatient (AMB) | payer OTHER, SELFPAY ==
--- NOTE | 2024-02-24 13:02 | A.OFFVIS_ITS ---
Vital Signs 02/24/24 13:03 Height 5 ft 3 in Weight 143 lb BMI 25.3 Intake Visit Reasons: Right knee pain and giving way Intake Note: Margaux is a 73-year-old female who presents with complaints of progressively worsening right knee pain and giving way. The patient states that her symptoms have gotten worse over the last 2 years in spite of continued non operative treatments. She was given a cortisone injection by her primary care physician that gave her no relief. She has done physical therapy exercises which aggravated her pain. She has also tried Tylenol and anti-inflammatory medicines which gave her minimal relief. The patient states that at times her right knee will give out. Allergies No Known Allergies [No Known Allergies*] Allergy (Verified 02/24/24 13:03) Medication List - Last Reconciled 02/25/24 by Fili Bella MD levothyroxine 75 mcg PO DAILY lisinopril 10 mg PO DAILY simvastatin 20 mg PO BEDTIME PFSH Medical History Hypertension Vitamin D deficiency Hypothyroidism Surgical History Hx of tonsillectomy Family History Father Lung cancer Mother Cancer Social History Alcohol intake: current Alcohol intake frequency: holidays/special occasions only Patient Tobacco Use Status: Never used Tobacco Physical Exam Vital Signs: BMI result Body Mass Index 25.3 Const Other: Well-nourished well-developed very friendly female awake alert and oriented x3 in no acute distress Extrem Other: Bilateral lower extremity examination shows good capillary refill, no skin lesions noted, normal sensation light touch Right knee examination shows a minimal effusion, mild crepitus with range of motion, tenderness along her medial joint line, positive Donald's test, no instability Results Reviewed Results Reviewed: Standing full weight-bearing x-rays of the patient's right knee show mild diffuse joint space narrowing, no acute bony abnormalities MRI of the patient's right knee shows mild diffuse joint space narrowing as well as a tear of the medial meniscus Assessment & Plan Assessment & Plan (1) Tear of medial meniscus of right knee: Code(s): S83.241A - Other tear of medial meniscus, current injury, right knee, initial encounter Category: Medical Plan Ms. Ames presents with progressively worsening right knee pain and mechani alec symptoms due to a medial meniscus tear. I had a lengthy discussion with the patient regarding the treatment options. At this point she has failed continued non operative treatments. The risks and benefits of right knee arthroscopic surgery were discussed at length with the patient. The patient wishes to proceed with surgery. Surgery will most likely involve right knee arthroscopic partial medial meniscectomy. The patient does understand that she may not get 100% relief of her symptoms depending on the severity of her degenerative changes. She will be scheduled for next available date. She will follow-up as instructed. Feel free to call me at any time should questions regarding her orthopedic management arise. I spent 21 minutes in reviewing the patient's records and imaging studies, seeing the patient and documenting in the medical record. Coding Level of Care Code Est Pt Level 3 (60840) Complex EM visit Add On G2211 Diagnoses Tear of medial meniscus of right knee S83.241A
[2024-02-24 13:03] VITALS: BMI 25.3
== END 2024-02-24 13:37 | disposition home or self-care (01) ==
PROVIDERS: PCP Family Medicine; Visit Provider Orthopaedic Surgery
DX: S83.241A Other tear of medial meniscus, current injury, right knee, initial encounter (principal)
CPT/HCPCS: 99214

== ENCOUNTER 2024-05-29 05:58 | Day surgery (SDC) | payer OTHER, SELFPAY ==
[2024-05-27 10:41] VITALS: BMI 25.3
[2024-05-27 10:52] VITALS: BMI 25.3
--- NOTE | 2024-05-27 14:00 | P.CONAN_ITS ---
Documented by User: Sonja Barkley NP 05/27/24 14:01 HPI - Anesthesia Eval Consult details Narrative: 74yo F for Right Knee Arthroscopy with partial medial meniscectomy PMFSH Active Problems Active Problems: All Active Problems Tear of medial meniscus of right knee (Acute) Right knee pain (Acute) Chronic neck pain (Acute) Osteoporosis (Acute) Muscle spasms of neck (Acute) Facet arthropathy, cervical (Acute) Vitamin D deficiency (Acute) Hypothyroidism (Acute) Past Medical History Medical History Elevated cholesterol Hypertension Vitamin D deficiency Hypothyroidism Family History Family History Father Lung cancer Mother Cancer Surgical History Surgical History S/P placement of nerve stimulator Hx of bilateral cataract extraction Hx of tonsillectomy Social History Social History Are you a primary transitional care manager to a significant other at home: No Do you presently have visiting nurse or other home services: No Alcohol intake: current Alcohol intake frequency: holidays/special occasions only Patient Tobacco Use Status: Never used Tobacco Use of substances other than those prescribed or required for medical reasons: No Have you been hit, kicked, punched, or otherwise hurt by someone within the past year? If so, by whom?: No Spiritual Healthcare Practices: none Congregation Healthcare Practices: Hinduism Cultural Healthcare Practices: none Are you DNR?: No Advance Directives Information Provided: Yes (as above noted) Advance Directives on File: No Recently lost weight without trying: No Eating poorly because of decreased appetite: No Nutrition Risks: Surgical patient >75years FDLMP: n/a Poor oral hygiene: No (upper full and lower partial denture-lower is very difficult to remove) Meds Allergies Allergy/AdvReac Type Severity Reaction Status Date / Time No Known Allergies Allergy Verified 05/29/24 06:11 [No Known Allergies*] Active Medications: Current Medications Cefazolin Sodium/Dextrose (Ancef) 2 gm in 50 mls @ 100 mls/hr IV PREOP ONE Stop: 05/29/24 06:11 Home Medications ?Medication ?Instructions ?Recorded ?Confirmed ?Last Taken ?Type lisinopril 10 mg tablet 10 mg PO BEDTIME 06/01/20 05/29/24 Unknown History simvastatin 20 mg tablet 20 mg PO BEDTIME 06/01/20 05/29/24 Unknown History Exam Height,Weight and Vital Signs: Height 5 ft 3 in Weight 64.864 kg Assessment and Plan Assessment Anesthesia Assessment: Chart Reviewed Documented by User: Rafaela Bahena MD 05/29/24 07:44 PMFSH Past Medical History Medical History Elevated cholesterol Hypertension Vitamin D deficiency Hypothyroidism Family History Family History Father Lung cancer Mother Cancer Family history of problems with anesthesia: No Surgical History Surgical History S/P placement of nerve stimulator Hx of bilateral cataract extraction Hx of tonsillectomy History of Problems with Anesthesia: No Social History Social History Are you a primary transitional care manager to a significant other at home: No Do you presently have visiting nurse or other home services: No Alcohol intake: current Alcohol intake frequency: holidays/special occasions only Patient Tobacco Use Status: Never used Tobacco Use of substances other than those prescribed or required for medical reasons: No Have you been hit, kicked, punched, or otherwise hurt by someone within the past year? If so, by whom?: No Spiritual Healthcare Practices: none Congregation Healthcare Practices: Hinduism Cultural Healthcare Practices: none Are you DNR?: No Advance Directives Information Provided: Yes (as above noted) Advance Directives on File: No Recently lost weight without trying: No Eating poorly because of decreased appetite: No Nutrition Risks: Surgical patient >75years FDLMP: n/a Poor oral hygiene: No (upper full and lower partial denture-lower is very difficult to remove) Meds Allergies Allergy/AdvReac Type Severity Reaction Status Date / Time No Known Allergies Allergy Verified 05/29/24 06:11 [No Known Allergies*] Home Medications ?Medication ?Instructions ?Recorded ?Confirmed ?Last Taken ?Type lisinopril 10 mg tablet 10 mg PO BEDTIME 06/01/20 05/29/24 Unknown History simvastatin 20 mg tablet 20 mg PO BEDTIME 06/01/20 05/29/24 Unknown History Exam Airway Mallampati Class: II TM Dist: <=3cm Neck ROM: Poor Denture: Upper Partial: Lower (refuses to take partials out) Heart: rrr Lungs: cta Assessment and Plan Assessment Anesthesia Assessment: Anesthesia Plan Discussed Final Anesthetic Review Family History of Problems with Anesthesia: No History of Problems with Anesthesia: No NPO: Yes ASA Class: III Final Preanesthetic Review: No Changes in Pt Med Stat, Meds/Allgs Chart Reviewed, Consent Obtained/Reviewed and Anes Risks/Benef Reviewed Patient Risk: Intermediate Procedure Risk: Low Anesthetic Plan Anesthetic Plan: GA Disposition: Standard PACU
[2024-05-29 06:11] VITALS: BMI 25.6
[2024-05-29 06:19] VITALS: BP 157/74; PULSE 70; RESP 16; TEMP 36.7; O2SAT 98
[2024-05-29] MEDS: Lactated Ringers 1,000 ML 100 ML IVCONT (06:28)
--- NOTE | 2024-05-29 07:20 | PC.NURSE ---
Patient in preop. Wears full upper dentures and partial lower dentures. Per her, the lower dentures are removable but they take forever to get out, they are almost impossible to remove . Patient adamant on not removing bottom dentures. Dr. Bahena at bedside and made aware. Discussed between them the risks of bringing dentures into OR. Patient agrees to the associated risks. OR nurse Janette Palmer aware. ONLY upper dentures removed preop.
[2024-05-29] MEDS: ceFAZolin Sodium/Dextrose,Iso 2 GM/50 ML PIGGYBACK IV (07:50)
[2024-05-29] MEDS: Acetaminophen 1,000 MG/100 ML PIGGYBACK 400 MG IV (08:05)
[2024-05-29 08:20] VITALS: BP 122/54; PULSE 69; RESP 18; TEMP 36.6; O2SAT 98
[2024-05-29 08:25] VITALS: BP 128/56; PULSE 62; RESP 16; O2SAT 98
--- NOTE | 2024-05-29 08:27 | PM.OP ---
Brief Operative Note Date of Service: 05/29/24 Pre-op diagnosis: Right knee medial meniscus tear, right knee degenerative joint disease Post-op diagnosis: same Procedure: Right knee diagnostic arthroscopy with right knee arthroscopic partial medial meniscectomy, right knee arthroscopic chondroplasty of the undersurface of the patella and trochlear groove Implants: none Surgeon: Fili Bella MD Anesthesia: GLMA Was an Super[employer] used for this Procedure?: No Estimated blood loss (mL): 10 Pathology: none sent Condition: stable Disposition: PACU
--- NOTE | 2024-05-29 08:28 | W.PM.OPN ---
Operative Note Operative Note Date of Service: 05/29/24 Narrative: After the patient was identified as Margaux Ames and her right knee was initialed by myself they were brought to the operating room where general anesthesia was induced by the anesthesiologist in routine fashion. The patient was given 2 g of IV Ancef for infection prophylaxis. A formal time-out was completed. The patient's right lower extremity was prepped and draped in sterile fashion. Marcaine with epinephrine was injected into the planned incision sites as well as their right knee joint. A # 11 scalpel blade was used to make an anterolateral portal 1 cm proximal to the joint line and 1 cm lateral to the patellar tendon. Blunt trocar technique was used into the suprapatellar pouch with the knee in extension. Diagnostic arthroscopy showed multiple bands of thickened plica which would be excised at the end of the procedure. There were no loose bodies or abnormalities found in either the medial or lateral gutters. There were diffuse grades 2 and 3 degenerative changes of the undersurface of the patella as well as grades 1 and 2 degenerative changes of the trochlear groove. The patient's knee was flexed to 45 degrees and a valgus force was placed upon it. The medial compartment was entered. An anteromedial portal was made 1 cm proximal to the joint line and 1 cm medial to the patellar tendon. Probing of the medial meniscus showed a radial tear of the posterior horn. A partial medial meniscectomy was performed using the arthroscopic shaver. Following the partial meniscectomy the remainder of the meniscus tissue was stable. There were diffuse grades 1 and 2 degenerative changes of the medial femoral condyle as well as diffuse grade1 degenerative changes of the medial tibial plateau. The articular surfaces of the medial femoral condyle and medial tibial plateau were smooth so no chondroplasty was indicated. The patient's knee was then placed into a neutral position. There was no injury to the anterior cruciate ligament. The patient's knee was then placed into the figure of 4 position and the lateral compartment was entered. There were minimal degenerative changes of the lateral femoral condyle and lateral tibial plateau. There was no evidence of lateral meniscus tearing. The patient's knee was once again brought into extension and the suprapatellar pouch was entered. The arthroscopic shaver and the ArthroCare Wand were used to excise the thickened bands of plica. The undersurfaces of the patella and trochlear groove were made smooth using the arthroscopic shaver. The knee joint was irrigated and then drained. All arthroscopic instruments were removed. The 2 portals were closed with 3-0 nylon interrupted suture. The knee joint was injected with Marcaine. Dry sterile dressing and Mina bandages were placed over the patient's knee. The patient was awoken and extubated in the operating room. They were transferred to the recovery room in stable condition.
[2024-05-29 08:30] VITALS: BP 129/53; PULSE 60; RESP 16; O2SAT 98
[2024-05-29] MEDS: cefTRIAXone sodium 1 GM VIAL IVPUSH (08:34)
[2024-05-29 08:35] VITALS: BP 125/56; PULSE 58; RESP 16; O2SAT 99
[2024-05-29 08:48] VITALS: BP 130/57; PULSE 59; RESP 16; TEMP 36.4; O2SAT 99
== END 2024-05-29 09:15 | disposition home or self-care (01) ==
PROVIDERS: PCP Family Medicine; Visit Provider Orthopaedic Surgery
PROC: (CPT 29870; principal; 2024-05-29 07:30)
DX: M23.221 Derangement of posterior horn of medial meniscus due to old tear or injury, right knee (principal); M23.51 Chronic instability of knee, right knee; M25.561 Pain in right knee; M17.11 Unilateral primary osteoarthritis, right knee; M67.51 Plica syndrome, right knee; I10 Essential (primary) hypertension; E55.9 Vitamin D deficiency, unspecified; E03.9 Hypothyroidism, unspecified; Z79.899 Other long term (current) drug therapy
CPT/HCPCS: 29881; J0131; J0171; J0690; J0696; J1100; J1885; J2003; J2405; J2704; J2795; J3010

== ENCOUNTER → 2024-05-29 05:58 | Outpatient (BNV) | payer OTHER, SELFPAY | PROVIDERS: PCP Family Medicine; Visit Provider Orthopaedic Surgery | DX: S83.241A Other tear of medial meniscus, current injury, right knee, initial encounter (principal) | CPT/HCPCS: 29881 ==

== ENCOUNTER 2024-06-02 09:44 | Outpatient (REF) | payer OTHER, SELFPAY ==
[2024-06-02 11:03] LABS: Anion Gap 12 (12-20); Blood Urea Nitrogen 22 mg/dL (9-16); Calcium 9.8 mg/dL (8.4-10.2); Carbon Dioxide 24 mmol/L (22-29); Chloride 108 mmol/L (96-108); Cholesterol 177 mg/dL (<200); Estimated Glomerular Filt Rate 45; Glucose Random 92 mg/dL (60-115); HDL Cholesterol 78 mg/dL (>40); LDL Cholesterol Calculated 76 mg/dL (<100); Potassium 4.4 mmol/L (3.3-5.1); Sodium 140 mmol/L (135-145); Triglycerides 117 mg/dL (<150)
== END 2024-06-02 09:45 | disposition home or self-care (01) ==
LOC: HO.LAB 09:44
PROVIDERS: PCP Family Medicine; Visit Provider Family Medicine
DX: E78.2 Mixed hyperlipidemia (principal)
CPT/HCPCS: 36415; 80048; 80061

== ENCOUNTER 2024-06-11 14:32 | Outpatient (AMB) | payer OTHER, SELFPAY ==
--- NOTE | 2024-06-11 14:38 | MHC.OFFVIS ---
Intake Visit Reasons: PO RT knee 05/29/24 Intake Note: Margaux 74 yr old female presents today for her P/O visit for her right knee done on 05/29/[address] Bella. States she is doing well and has been taking aleve to help manage her pain. Allergies No Known Allergies [No Known Allergies*] Allergy (Verified 06/11/24 14:39) Medication List - Last Reconciled 06/11/24 by Amandeep Smith PA-C levothyroxine 75 mcg PO DAILY lisinopril 10 mg PO BEDTIME oxycodone 5 mg PO Q6H PRN simvastatin 20 mg PO BEDTIME HPI HPI PO RT knee 05/29/24 DR: Details: 74-year-old female returns to the office today status post right knee arthroscopy with Dr. Bella on 05/29/2024. She is doing quite well. Advancing activities as tolerated. [facility] Medical History Elevated cholesterol Hypertension Vitamin D deficiency Hypothyroidism Surgical History S/P placement of nerve stimulator Hx of bilateral cataract extraction Hx of tonsillectomy Family History Father Lung cancer Mother Cancer Social History Are you a primary acute care assistant to a significant other at home: No Do you presently have visiting nurse or other home services: No Alcohol intake: current Alcohol intake frequency: holidays/special occasions only Patient Tobacco Use Status: Never used Tobacco Review of Systems Const All systems reviewed & are unremarkable except as noted in HPI and below Physical Exam Extrem Other: Right knee incisions are clean dry and intact. No erythema or joint effusion. Range of motion 0-95 degrees. Calf supple nontender neurovascularly intact. Results Reviewed Results Reviewed: Brief Operative Note Date of Service: 05/29/24 Pre-op diagnosis: Right knee medial meniscus tear, right knee degenerative joint disease Post-op diagnosis: same Procedure: Right knee diagnostic arthroscopy with right knee arthroscopic partial medial meniscectomy, right knee arthroscopic chondroplasty of the undersurface of the patella and trochlear groove Implants: none Surgeon: Fili Bella MD Assessment & Plan Assessment & Plan (1) Tear of medial meniscus of right knee: Code(s): S83.241A - Other tear of medial meniscus, current injury, right knee, initial encounter Category: Medical Plan: Sutures removed today Steri-Strips applied. I did place an order for physical therapy in case she did decide she wants to work on motion and some strength exercises. She will advance activities as tolerated and I did educate her on being cautious for the next 4-6 weeks. She will see us back in [address] Bella sooner if needed. Orders: Orders PT Evaluation and Treatment Today S83.241A - Other tear of medial meniscus, current injury, right knee, initial encounter Coding Level of Care Code Global (20754) Diagnoses Tear of medial meniscus of right knee S83.241A
== END 2024-06-11 15:55 | disposition home or self-care (01) ==
LOC: HO.HOS 14:33
PROVIDERS: PCP Family Medicine; Visit Provider Physician Assistant
DX: S83.241A Other tear of medial meniscus, current injury, right knee, initial encounter (principal)
CPT/HCPCS: 99024

== ENCOUNTER 2024-12-21 | Outpatient (REF) | payer OTHER, SELFPAY ==
[2024-12-21 08:01] LABS: Alanine Aminotransferase 22 U/L (0-31); Albumin Level 4.0 g/dL (3.5-5.0); Alkaline Phosphatase 65 U/L (39-117); Anion Gap 15 (12-20); Aspartate Amino Transferase 30 U/L (5-31); Blood Urea Nitrogen 28 mg/dL (9-16); Calcium 9.1 mg/dL (8.4-10.2); Carbon Dioxide 23 mmol/L (22-29); Chloride 107 mmol/L (96-108); Cholesterol 189 mg/dL (<200); Estimated Glomerular Filt Rate 39; HDL Cholesterol 77 mg/dL (>40); Potassium 4.7 mmol/L (3.3-5.1); Sodium 140 mmol/L (135-145); Total Protein 6.3 g/dL (6.5-8.0); Triglycerides 75 mg/dL (<150)
[2024-12-21 08:17] LABS: Thyroid Stimulating Hormone 1.48 uIU/mL (0.32-4.0)
--- OUTSIDE RECORDS SUMMARY | 2025-01-26 11:41 | XMS_ITS ---
Author Organization Unknown ENCOUNTERS Encounter Performer Location Date Diagnosis Diagnosis Status Pre Admit [address] [id number] [address]patient [address] [id number] [facility] Pre Admit [facility] [address] [address] [id number] Outpatient [facility] [address] [address] [id number] [place] Pre Admit [address] [address] [id number] Outpatient [facility] [address] [id number] Emergency [address] [address] [id number] [place] *Note: Encounters from your own facility or health system may be excluded. Allergies, Adverse Reactions, Alerts Allergen Type Severity Identification Date Medications Name Date Quantity Days Supplied GPI Number
--- OUTSIDE RECORDS SUMMARY | 2025-01-26 11:41 | XMS_ITS | Clinical Summary ---
Author Organization [facility] Address 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 90 tablet 12/11/2024 Active lisinopril (PRINIVIL,ZESTR IL) 10 MG tablet TAKE 1 TABLET BY MOUTH DAILY. 90 tablet 12/11/2024 Active levothyroxine (SYNTHROID, LEVOTHROID) 75 MCG tablet TAKE 1 TABLET BY MOUTH EVERY MORNING. TAKE FOR 6 DAYS AND SKIP THE 7TH DAY 90 tablet 12/11/2024 Active Active Problems Problem Noted Date Diagnosed Date Mixed hyperlipidemia 02/15/2020 Assessment & Plan (06/11/2024 10:08 PM EDT): Assessment & Plan (06/03/2023 3:49 PM EDT): Well controlled, cont current meds Monitoring labs ordered for before next visit Assessment & Plan (12/05/2022 1:23 PM EDT): Due for labs Assessment & Plan (11/28/2021 5:27 PM EDT): Due for labs before next visit Assessment & Plan (03/02/2021 4:26 PM EST): Cont current meds Labs due Assessment & Plan (02/15/2020 8:52 AM EST): Cont simvastatin 20mg Benign essential hypertension 02/15/2020 Assessment & Plan (06/11/2024 10:08 PM EDT): Assessment & Plan (06/03/2023 3:48 PM EDT): Well controlled, cont current meds Assessment & Plan (12/05/2022 1:22 PM EDT): Well controlled, cont current meds Assessment & Plan (11/28/2021 5:27 PM EDT): Well controlled, cont current meds Assessment & Plan (03/02/2021 4:26 PM EST): Well controlled, cont current meds Labs due Assessment & Plan (09/15/2020 5:50 AM EDT): Controllled. Cont lisinopril 10mg Assessment & Plan (02/15/2020 8:52 AM EST): Well controlled, no symptoms of hypotension. Age-related osteoporosis wit hout current pathological fracture 02/15/2020 Assessment & Plan (11/28/2021 5:28 PM EDT): Due for repeat study. She does not want to continue with endocrinology. Assessment & Plan (02/15/2020 8:52 AM EST): Reviewed treatment options including oral bisphosphonates which I would happily prescribe or could discuss other options with systems design engineer, Dr Ocampo, when they meet next month. Margaux plans to discuss with Dr Flores Counseled on weight bearing exercise and weight lifting. Acquired hypothyroidism 02/15/2020 Assessment & Plan (06/03/2023 3:49 PM EDT): Well controlled, cont current meds Monitoring labs ordered for before next visit Assessment & Plan (12/05/2022 1:23 PM EDT): Due for monitoring labs Assessment & Plan (11/28/2021 5:27 PM EDT): Well controlled, cont current meds. Due for monitoring labs before next visit Assessment & Plan (03/02/2021 4:26 PM EST): Cont current meds Labs due Assessment & Plan (09/15/2020 5:52 AM EDT): Okay to take over thyroid rx from here. TSH 06/03/20 scanned in chart wnl. Assessment & Plan (02/15/2020 8:53 AM EST): Recent TSH wnl, cont 75mcg. Follow with endo Resolved Problems Problem Noted Date Diagnosed Date Resolved Date Chronic neck pain 12/05/2022 12/17/2024 Overview (12/05/2022): Pain mgmt at [facility] did Sprint stimulator in September 2022, removed in Nov 2022- had good effect as of Dec 2022 Left hand pain 03/06/2022 12/17/2024 Assessment & Plan (03/06/2022 3:47 PM EST): Pain in thumb without tingling or numbness. Decreased thenar prominence. + nodules over DIPs. Concern for arthritis -obtain xray of left hand -obtain labs: CRP, ESR, RF, MATA -rheum referral -tylenol prn Voltaren gel apply as directed -may use brace as well, as the most common joint affected in arthritis of the thumbs is CMC joint Intractable abdominal pain 04/20/2021 1 Assessment & Plan (04/20/2021 4:51 PM EST): Abdominal pain which has now begun to radiate to the back, and the finding of pulsatile mass in the abdomen is very concerning for aortic aneurysm. Patient understands and I have directed her to the emergency room. Encounters Date Type Department Care Team Description 12/17/2024 3:00 PM EDT Office Visit [facility] [address] [place] [address] Ricky Kline MD Mixed hyperlipidemia (Primary Dx); Essential hypertension; Acquired hypothyroidism; Hypothyroidism, unspecified type 12/11/2024 Refill [facility] [address] [place] [address] Ioana Fischer MD, MPH Medication Refill from Last 3 Months Immunizations Immunization Administration Dates Next Due COVID-19 (Pre-12/24) Pfizer Vaccine, mRNA, PF ,02/23/2020 Influenza Quadrivalent Preservative Free IM 12/02,01/02/2022 Family History Medical History Relation Comments Heart attack Brother Hypertension Father Lung cancer Father Cancer Mother primary uncertai n, ?lung was smoker Breast cancer Paternal Aunt No Known Problems Son Colon cancer Neg Hx Diabetes Neg Hx Ovarian cancer Neg Hx Pancreatic cancer Neg Hx Relation Status Comments Brother Father Mother Paternal Aunt Sister Alive Son Alive Social History Tobacco Use Types Packs/Day Years Used Date Smoking Tobacco: Never Passive Smoke Exposure: Past Smokeless Tobacco: Never Tobacco Cessation:Counseling Given: Not Answered Alcohol Use Standard Drinks/Week Comments Yes 2 (1 standard drink = 0.6 oz pur e alcohol) Child or Family Care Answer Date Record ed Do you have problems with on e of the following making it difficult for you to work, study, or receive health care? No 12/10/2024 Education Answer Date Recorded Are you interested in more education? Not on chon e 06/29/2022 Are you concerned about learning? Not on file 06/29/2022 No 06/29/2022 No 06/29/2022 Food Answer Date Recorded Within the past 6 months we worried whether our food would run out before we got money to buy more. Never True 12/10/2024 Within the past 6 months the food we bought just didn't last and we didn't have enough money to get more. Never True Residential Stability Answer Date Recor ded What is your housing situation today? I have cari pinzon 12/10/2024 How many times have you move d in the past 12 months? Zero (I did not move) 12/10/2024 Paying for Meds Answer Date Recorded Do you have trouble paying for medicines? No 12/10/2024 Paying Utility Bills Answer Date Record ed Do you have trouble paying your heating or elect ricity bill? No 12/10/2024 Transportation Answer Date Recorded Has the lack of transportati on kept you from medical appointments or from getting medications? No 12/10/2024 Digital Access Answer Date Recorded No 12/10/2024 Yes 12/10/2024 Do you have reliable internet access at home? Ye s 12/10/2024 Do you have a device (e.g., phone, tablet, computer) with a working camera? Yes 12/10/2024 Intimate Partner Violence Answer Date R ecorded Denied Basic Needs Not on file 12/10/2024 In the past 12 months have y ou been in a relationship with a person who hurts, threatens, or tries to control you? No 12/10/2024 Worried food would run out Not on file 12/10 In the past 12 months have y ou been in a relationship with a person who hurts, threatens, or tries to control you? No 12/10/2024 Comments Unknown Sex and Gender Information Value Date Recorded Sex Assigned at Female 06/10/2019 1:45 PM EDT Legal Sex Female 1:40 PM EDT Gender Identity Female 06/10/2019 1:45 PM EDT Sexual Orientation Straight 06/10/2019 1: 45 PM EDT Last Filed Vital Signs Vital Sign Reading Time Taken Comments Blood Pressure 104/66 12/17/2024 2:52 PM EDT Pulse 59 12/17/2024 2:52 PM EDT Temperature 36.3 C (97.4 F) 09/10/2023 8:12 AM EDT Respiratory Rate 16 04/20/2021 4:21 PM EST Oxygen Saturation 99% 12/17/2024 2:52 PM EDT Inhaled Oxygen Concentration - - Weight 62.4 kg (137 lb 9.6 oz) 12/17/2024 2:52 P M EDT Height 161.8 cm (5' 3.7 ) 12/17/2024 2:52 PM EDT Body Mass Index 23.84 12/17/2024 2:52 PM EDT Plan of Treatment Upcoming Encounters Date Type Department Care Team (Late st Contact Info) Description 06/16/2025 8:00 AM EDT Office Visit [facility] [address] [place] [address] Ricky Kline MD [address] [facility] [address] [place] [address] [email or web address] 12/21/2025 3:00 PM EDT Office Visit [facility] [address] [place] [address] Ricky Kline MD [address] [place] [phone] [email or web address] Health Maintenance Due Date Last Done Comments Adult Td,Tdap Booster 1948 LIPID PANEL 1948 HEPATITIS C SCREENING 1966 PNEUMOCOCCAL VACCINES (50+ years) (1 of 1 - PCV) 1998 ZOSTER VACCINES (1 of 2) 1998 RSV VACCINE (1 - 1-dose 75+ series) 05/22/2023 INFLUENZA VACCINE (#1) 2024 12/20/2022, 2021 COVID-19 VACCINE ( season) 2024 11/30/2020, 03/15/2020, 02/23/2020 BLOOD PRESSURE 06/17/2025 12/17/2024 DEPRESSION SCREENING 12/10/2025 12/10/2024 CREATININE LEVEL 12/17/2025 12/17/2024, 03/2024, 06/03/2023, Additional history exists POTASSIUM LEVEL 12/17/2025 12/17/2024, 04/0 03/2024, 06/03/2023, Additional history exists TSH LEVEL 12/17/2025 12/17/2024, 04/0 03/2023, 12/10/2022, Additional history exists OSTEOPOROSIS SCREENING INITIAL (ONE-TIME) Completed 02/14/2022, 02/11/2020 SMOKING STATUS SCREENING (Once After 26 Yrs) Completed 12/17/2024 HEPATITIS A VACCINES Aged Out No long er eligible based on patient's age to complete this topic HIB VACCINES Aged Out No longer eligi ble based on patient's age to complete this topic MENINGOCOCCAL VACCINES (ACWY) Aged Out No longer eligible based on patient's age to complete this topic MENINGOCOCCAL VACCINES (B) Aged Out N o longer eligible based on patient's age to complete this topic Medical Devices Not on file Procedures Procedure Name Priority Date/Time Associated Diagnosis Comments BASIC METABOLIC PANEL (BMP) Routine 06/02/2024 2:04 PM EDT Mixed hyperlipidemia TSH WITH REFLEX Routine 12/10/2022 12:58 PM EDT Acquired hypothyroidism BD DXA MONITORING Routine 02/14/2022 9:1 5 AM EST Osteopenia, unspecified location from Last 3 Months or Most Recently Relevant to Health Maintenance Results * Basic metabolic panel (06/02/2024 2:04 PM EDT) Blood us Ioana Fischer MD, MPH LAB BLOOD BKR ORDERA BLES Final Result Performing Organization Address City/[facility]/ZIP Co de Phone Number [address] [phone] * TSH with reflex (12/10/2022 12:58 PM EDT) Blood us Ioana Fischer MD, MPH LAB BLOOD BKR ORDERA BLES Final Result Performing Organization Address City/[facility]/ZIP Co de Phone Number EXTERNAL NON-INTERFACED REF LAB * DXA Monitoring (02/14/2022 9:15 AM EST) Anatomical Region Laterality Modality Bone Density Bone Density us Ioana Fischer MD, MPH IMG BD BONE DENSITY DEXA Final Result from Last 3 Months or Most Recently Relevant to Health Maintenance Insurance [employer] [place] [place] [employer] [place] [employer] Advance Directives For more information, please contact: [phone] (9AM - 5PM [place], Saturday-Saturday) Documents on File Type Date Recorded Patient Production Hand Expl anation Healthcare Proxy 06/24/2024 3:03 PM MOLST 06/24/2024 3:03 PM Care Teams Cheese Factory Worker Relationship Specialty Start Date End Date Ioana Fischer MD, MPH [address] [place] [address] [email or web address] PCP - General Family Medicine 06/10/19 Additional Source Comments The information contained in this document represents components of the legal health record. It is not the complete legal health record.[facility]
--- OUTSIDE RECORDS SUMMARY | 2025-01-26 11:41 | XMS_ITS | Encounter Summary ---
Author Organization [facility] Address [address] [facility] [address] [place] [address] Phone Care Team Providers Care Dentofacial Orthopedics Dentist Name Role Phone Ioana Fischer MD, MPH Primary Care Provid er Reason for Visit * Reason Onset Date Comments Urinary Tract Infection 09/09/2023 Encounter Details Date Type Department Care Team (Late st Contact Info) Description 09/09/2023 Nurse Triage [facility] Primary Care [address] [facility] [address] [place] [address] Ioana Fischer MD, MPH [address] [address] [place] [address] [email or web address] Urinary Tract Infection Social History Tobacco Use Types Packs/Day Years Used Date Smoking Tobacco: Never Smokeless Tobacco: Never Alcohol Use Standard Drinks/Week Comments Yes 2 (1 standard drink = 0.6 oz pur e alcohol) Child or Family Care Answer Date Record ed Do you have problems with on e of the following making it difficult for you to work, study, or receive health care? No 12/04/2022 Education Answer Date Recorded Are you interested in more education? Not on chon e 06/29/2022 Are you concerned about learning? Not on file 06/29/2022 No 06/29/2022 No 06/29/2022 Food Answer Date Recorded Within the past 6 months we worried whether our food would run out before we got money to buy more. Never True 12/04/2022 Within the past 6 months the food we bought just didn't last and we didn't have enough money to get more. Never True Residential Stability Answer Date Recor ded What is your housing situation today? I have cari sing 12/04/2022 How many times have you move d in the past 12 months? Zero (I did not move) 12/04/2022 Paying for Meds Answer Date Recorded Do you have trouble paying for medicines? No 12/04/2022 Paying Utility Bills Answer Date Record ed Do you have trouble paying your heating or elect ricity bill? No 12/04/2022 Transportation Answer Date Recorded Has the lack of transportati on kept you from medical appointments or from getting medications? No 12/04/2022 Digital Access Answer Date Recorded No 12/04/2022 Yes 12/04/2022 Do you have reliable internet access at home? Ye s 12/04/2022 Do you have a device (e.g., phone, tablet, computer) with a working camera? Yes 12/04/2022 Comments Unknown Sex and Gender Information Value Date Recorded Sex Assigned at Female 06/10/2019 1:45 PM EDT Legal Sex Female 1:40 PM EDT Gender Identity Female 06/10/2019 1:45 PM EDT Sexual Orientation Straight 06/10/2019 1: 45 PM EDT documented as of this encounter Progress Notes * Maria Luz Myers LPN - 09/09/2023 9:51 AM EDT S/W Margaux, she is experiencing some low back pain with diarrhea and cramping. Also reporting very mild and occasional burning with urination. No other symptoms at this time. No s/sx of dehydration. Advised in office assessment is best option given symptoms. Unfortunately, no available appointmentstoday, pt declines need for urgent care. Appt scheduled for 09/09 at 8:20am with PCP. Advised to callback or be evaluated for new or worsening sx. Nurse Triage Encounter Note Reason for Triage Margaux Ames Elaine contacted office for Urinary Tract Infection Call Disposition Schedule Visit Within 2 Business Days Disposition Comments: Patient/caregiver understands and will follow disposition: Yes Initial Symptom Screening and Assessment IA Symptom Onset 1-2 days Symptom Severity Mild - does not interfere with normal activities Other related symptoms low back pain, cramping, diarrhea, little burning Abdomen Symptoms (GI and ) Abdominal Symptoms Diarrhea Cardiac History? No Injury to abdomen? No Weak or Dizzy? No Appliances such as Feeding tube, colostomy? No Symptoms/Concerns Burning Care Advice Patient/Caregiver understands and will follow care advice?: Yes, plans to follow advice Urination Pain - [id number] Maria Luz Myers LPN Mon Sep 09, 2023 09:52 AM General Care Advice for Urination Pain (Pending PCP Evaluation) REASSURANCE AND EDUCATION - POSSIBLE URINE INFECTION: * This could be an urinary tract infection. * You should see your doctor (or BINDER CHAINSTITCH/PA) to be examined and tested. DRINK EXTRA FLUIDS: * Drink extra fluids. * Drink 8 to 10 cups (1,800 to 2,400 ml) of liquids a day. * Reason: This will water-down your urine and make it less painful to pass. If there is an infection, this will help wash out the germs from your bladder. CALL BACK IF: * You become worse Already Receiving Antibiotic Treatment for UTI PHENAZOPYRIDINE - EXTRA NOTES AND WARNINGS: * It turns the urine bright orange. This can cause staining of underwear. It can also sometimes stain contact lenses, because it gets in your tears. * Do not take this medicine if you have kidney disease. * Do not use if . This is a class B drug. Talk with your doctor first. * Do not use if . The safety of this drug in is unknown. Talk with your doctor first. * DO NOT USE FOR MORE THAN 2 DAYS. * Before taking any medicine, read all the instructions on the package. Patient will call back with additional questions or if symptoms change or worsen Maria Luz Myers LPN Reason for Disposition and Assessment Reason for Disposition Age > 50 years Protocols used: Urination Pain - [id number] * Marychuy Ambrocio - 09/09/2023 9:38 AM EDT Pt LVM on triage line stating she thinks she may have a UTI and was wondering if she can have an rxsent to [facility] and a lab slip sent for a urine test. Pt asked that we fax the request to [phone]. Please contact and advise. Central Support Wafer Polisher (Please do not reply to this user; this inbox is not monitored.) Thank you. documented in this encounter Plan of Treatment Upcoming Encounters Date Type Department Care Team (Late st Contact Info) Description 06/16/2025 8:00 AM EDT Office Visit [facility] Primary Care [address] [place] [address] [place] [address] Ricky Kline MD [address] [place] [phone] 12/21/2025 3:00 PM EDT Office Visit [facility] Primary Care [address] [facility] [address] [facility] [address] [place] [address] Ricky Kline MD [address] [place] [phone] [email or web address] documented as of this encounter Visit Diagnoses Not on filedocumented in this encounter Additional Health Concerns Assessment Noted Time PHQ-2 Depression Total Score: 0 12/05/19 23 11:17 AM EDT documented as of this encounter Care Teams Dentofacial Orthopedics Dentist Relationship Specialty Start Date End Date Ioana Fischer MD, MPH [address] [place] [phone] [email or web address] PCP - General Family Medicine 06/10/19 documented as of this encounter Additional Source Comments The information contained in this document represents components of the legal health record. It is not the complete legal health record.[facility]
--- OUTSIDE RECORDS SUMMARY | 2025-01-26 11:41 | XMS_ITS | Encounter Summary ---
Author Organization [facility] Address [address] [facility] [address] [place] [address] Phone Care Team Providers Care Treating Machine Operator Name Role Phone Ioana Fischer MD, MPH Primary Care Provid er Encounter Details Date Type Department Care Team (Late st Contact Info) Description 03/10/2020 Documentation [facility] Infectious Diseases [address] [place] [address] Winsome Logan [place] [email or web address] Social History Tobacco Use Types Packs/Day Years Used Date Smoking Tobacco: Never Smokeless Tobacco: Never Alcohol Use Standard Drinks/Week Comments Yes 2 (1 standard drink = 0.6 oz pur e alcohol) Comments Unknown Sex and Gender Information Value Date Recorded Sex Assigned at Female 06/10/2019 1:45 PM EDT Legal Sex Female 1:40 PM EDT Gender Identity Female 06/10/2019 1:45 PM EDT Sexual Orientation Straight 06/10/2019 1: 45 PM EDT documented as of this encounter Plan of Treatment Upcoming Encounters Date Type Department Care Team (Late st Contact Info) Description 06/16/2025 8:00 AM EDT Office Visit [facility] [address] [facility] [address] [place], [place] [phone] Ricky Kline MD [address] [place] [address] [email or web address] 12/21/2025 3:00 PM EDT Office Visit [facility] [address] [facility] [address] [place] [address] Ricky Kline MD [address] [place] [address] [email or web address] documented as of this encounter Procedures Procedure Name Priority Date/Time Associated Diagnosis Comments OUTSIDE BONE DENSITY SCREENING Routine 02/11/2020 documented in this encounter Results * OUTSIDE BONE DENSITY SCREENING (02/11/2020) [facility] Signature BONE DENSITY SCREENING - EXTERNAL osteoporosis based on lowest T score va;ue us Historical Provider HEALTH MAINTENANCE Final Result documented in this encounter Visit Diagnoses Not on filedocumented in this encounter Care Teams Treating Machine Operator Relationship Specialty Start Date End Date Ioana Fischer MD, MPH [address] [facility] [address] [place] [address] [email or web address] PCP - General Family Medicine 06/10/19 documented as of this encounter Additional Source Comments The information contained in this document represents components of the legal health record. It is not the complete legal health record.[facility]
== END 2024-12-21 00:01 ==
LOC: HO.LAB
PROVIDERS: PCP Family Medicine; Visit Provider Family Medicine
DX: E78.2 Mixed hyperlipidemia (principal); I10 Essential (primary) hypertension; E03.9 Hypothyroidism, unspecified
CPT/HCPCS: 36415; 80048; 80061; 80076; 84443

== ENCOUNTER 2025-02-23 07:34 | Outpatient (REF) | payer MEDICARE, SELFPAY ==
--- OUTSIDE RECORDS SUMMARY | 2025-02-23 07:37 | XMS_ITS | Clinical Summary ---
Author Organization [facility] Address Critical access hospital [facility] [address] [place] [phone] Phone Care Team Providers Care Clinical Transformation Specialist Name Role Phone Ioana Fischer MD, MPH Primary Care Provid er Allergies No known active allergies Medications baclofen (LIORESAL) 5 mg tablet TAKE 1 TABLET BY MOUTH AT BEDTIME NEEDED FOR MUSCLE SPASM 2 Active simvastatin (ZOCOR) 20 MG tablet Take 1 tablet (20 mg total) by mouth nightly at bedtime. at bedtime. 90 tablet 5 Active lisinopril (PRINIVIL,ZESTR IL) 10 MG tablet Take 1 tablet (10 mg total) by mouth daily. 90 tablet 5 Active levothyroxine (SYNTHROID, LEVOTHROID) 75 MCG tablet TAKE 1 TABLET BY MOUTH EVERY MORNING. TAKE FOR 6 DAYS AND SKIP THE 7TH DAY 90 tablet 5 Active simvastatin (ZOCOR) 20 MG tablet TAKE 1 TABLET BY MOUTH AT BEDTIME. 90 tablet 5 02/03/20 25 Discontinu ed(Reorder ) lisinopril (PRINIVIL,ZESTR IL) 10 MG tablet TAKE 1 TABLET BY MOUTH DAILY. 90 tablet 5 02/03/20 25 Discontinu ed(Reorder ) levothyroxine (SYNTHROID, LEVOTHROID) 75 MCG tablet TAKE 1 TABLET BY MOUTH EVERY MORNING. TAKE FOR 6 DAYS AND SKIP THE 7TH DAY 90 tablet 02/03/20 25 Discontinu ed(Reorder ) Active Problems Problem Noted Date Diagnosed Date [...] prescribe or could discuss other options with mold closer helper, Dr Ocampo, when they meet next month. Margaux plans to discuss with Dr Ocampo. Counseled on weight bearing exercise and weight [...] 12/05/2022 12/17/2024 Overview (12/05/2022): Pain mgmt at [facility] did Sprint stimulator in September 2022, removed in Sept 2023- had good effect as of Dec 2022 [...] Description 12/17/2024 3:00 PM EDT Office Visit [facility] [address] [place] [address] Ricky Kline MD Mixed hyperlipidemia (Primary Dx); Essential hypertension; Acquired hypothyroidism; Hypothyroidism, unspecified type 12/11/2024 Refill [facility] [address] [place] [address] Ioana Fischer MD, MPH Medication Refill from [...] housing situation today? I have cari sing 12/10/2024 How many times have you move [...] Description 06/16/2025 8:00 AM EDT Office Visit [facility] [address] [facility] [address] [place] [address] Ricky Kline MD [address] [place] [address] 12/21/2025 3:00 PM EDT Office Visit [facility] [address] [place] [address] Ricky Kline MD [address] [place] [address] Health Maintenance Due Date Last Done Comments Adult Td,Tdap Booster 1948 LIPID PANEL 1948 HEPATITIS C SCREENING 1966 PNEUMOCOCCAL VACCINES (50+ years) (1 of 1 - PCV) 1998 ZOSTER VACCINES (1 of 2) 1998 RSV VACCINE (1 - 1-dose 75+ series) 05/22/2023 INFLUENZA VACCINE (#1) 2024 12/20/2022, 2021 COVID-19 VACCINE ( - 2024- season) 2024 11/30/2020, 03/15/2020, 02/23/2020 BLOOD PRESSURE [...] LAB BLOOD BKR ORDERA BLES Final Result [facility] [address] [place] [address] * TSH with reflex (12/10/2022 12:58 PM EDT) Blood us Ioana Fischer MD, MPH LAB BLOOD BKR ORDERA BLES Final Result EXTERNAL NON-INTERFACED REF LAB * DXA Monitoring (02/14/2022 9:15 AM EST) Anatomical Region Laterality Modality Bone Density Bone Density us Ioana Fischer MD, MPH IMG BD BONE DENSITY DEXA Final Result from Last 3 Months or Most Recently Relevant to Health Maintenance Insurance [employer] HMO REPLACEMENT MEDICARE HMO REPLACEMENT MEDICARE HMO REPLACEMENT MEDICARE HMO REPLACEMENT MEDICARE HMO REPLACEMENT [employer] REPLACEMENT Advance Directives For more information, please contact: [phone] (9AM - 5PM [facility], Saturday-Saturday) Documents on File Type Date Recorded Patient Employment And Claims Aide Expl anation Healthcare Proxy 06/24/2024 3:03 PM MOLST 06/24/2024 3:03 PM Care Teams Clinical Transformation Specialist Relationship Specialty Start Date End Date Ioana Fischer MD, MPH [address] [place] [address] [address] [place] [address] PCP - General Family Medicine 06/10/19 Additional Source Comments The information contained in this document represents components of the legal health record. It is not the complete legal health record.[facility]
--- OUTSIDE RECORDS SUMMARY | 2025-02-23 07:37 | XMS_ITS | Encounter Summary ---
Author Organization [facility] Address [address] [place] [address] Phone Care Team Providers Care Mechanical Engineering Director Name Role Phone Ioana Fischer MD, MPH Primary Care Provid er Reason for Visit * Reason Onset Date Comments Urinary Tract Infection 09/09/2023 Encounter Details Date Type Department Care Team (Late st Contact Info) Description 09/09/2023 Nurse Triage [facility] Primary [facility] Clinic [address] [place] [address] Ioana Fischer MD, MPH [address] [facility] [address] [place] [address] [email or web address] Urinary Tract Infection Social History Tobacco Use [...] plans to follow advice Urination Pain - [id number] Maria Luz Myers LPN SatSep 09, 2023 09:52 AM General Care Advice for Urination Pain (Pending PCP Evaluation) REASSURANCE AND EDUCATION - POSSIBLE URINE INFECTION: * This could be an urinary tract infection. * You should see your doctor (or PLASTERER ROUGH/PA) to be examined and tested. DRINK EXTRA [...] 50 years Protocols used: Urination Pain - [id number] * Marychuy Ambrocio - 09/09/2023 9:38 AM EDT Pt LVM on triage line stating she thinks she may have a UTI and was wondering if she can have an rxsent to [facility] and a lab slip sent for a urine test. Pt asked that we fax the request to [phone]. Please contact and advise. Central Support Qc Analyst (Please do not reply to this user; this inbox is not monitored.) Thank you. documented in this encounter Plan of Treatment Upcoming Encounters Date Type Department Care Team (Late st Contact Info) Description 06/16/2025 8:00 AM EDT Office Visit [facility] Primary Care Clinic [address] [place] [address] Ricky Kline MD [address] [place] [phone] 12/21/2025 3:00 PM EDT Office Visit Located Within [facility] [address] [place] [address] Ricky Kline MD [address] [place] [id number] [email or web address] documented as of this encounter Visit Diagnoses Not on filedocumented in this encounter Additional Health Concerns Assessment Noted Time PHQ-2 Depression Total Score: 0 12/05/19 23 11:17 AM EDT documented as of this encounter Care Teams Mechanical Engineering Director Relationship Specialty Start Date End Date Ioana Fischer MD, MPH [address] [place] [phone] [email or web address] PCP - General Family Medicine 06/10/19 documented as of this encounter Additional Source Comments The information contained in this document represents components of the legal health record. It is not the complete legal health record.[facility]
--- OUTSIDE RECORDS SUMMARY | 2025-02-23 07:37 | XMS_ITS | Encounter Summary ---
Author Organization [facility] Address [address] [place] [address] Phone Care Team Providers Care Mental Health Program Director Name Role Phone Ioana Fischer MD, MPH Primary Care Provid er Encounter Details Date Type Department Care Team (Late st Contact Info) Description 03/10/2020 Documentation [facility] [address] [place] [address] Winsome Logan [email or web address] Social History Tobacco Use Types Packs/Day [...] Description 06/16/2025 8:00 AM EDT Office Visit [facility] [address] [place] [address] Ricky Kline MD [address] [facility] [address] [place] [address] [email or web address] 12/21/2025 3:00 PM EDT Office Visit [facility] [address] [place] [address] Ricky Kline MD [address] [facility] [address] [place] [address] [email or web address] documented as of this encounter Procedures Procedure Name Priority Date/Time Associated Diagnosis Comments OUTSIDE BONE DENSITY SCREENING Routine 02/11/2020 documented in this encounter Results * OUTSIDE BONE DENSITY SCREENING (02/11/2020) [facility] BONE DENSITY SCREENING - EXTERNAL osteoporosis based on lowest T score va;ue us Historical Provider HEALTH MAINTENANCE Final Result documented in this encounter Visit Diagnoses Not on filedocumented in this encounter Care Teams Mental Health Program Director Relationship Specialty Start Date End Date Ioana Fischer MD, MPH [address] [facility] [address] [place] [address] [email or web address] PCP - General Family Medicine 06/10/19 documented as of this encounter Additional Source Comments The information contained in this document represents components of the legal health record. It is not the complete legal health record.[facility]
[2025-02-23 08:56] LABS: Anion Gap 13 (12-20); Blood Urea Nitrogen 22 mg/dL (9-16); Calcium 9.4 mg/dL (8.4-10.2); Carbon Dioxide 25 mmol/L (22-29); Chloride 110 mmol/L (96-108); Cholesterol 188 mg/dL (<200); Estimated Glomerular Filt Rate 45; HDL Cholesterol 80 mg/dL (>40); Potassium 4.6 mmol/L (3.3-5.1); Sodium 143 mmol/L (135-145); Triglycerides 74 mg/dL (<150)
== END 2025-02-23 07:35 | disposition home or self-care (01) ==
LOC: HO.LAB 07:34
PROVIDERS: PCP Family Medicine; Visit Provider Family Medicine
DX: I10 Essential (primary) hypertension (principal); E78.2 Mixed hyperlipidemia
CPT/HCPCS: 36415; 80048; 80061